=== PATIENT | female | born 1955 | race Caucasian/White ===

== ENCOUNTER → 2018-01-30 11:24 | Outpatient (CLI) | payer OTHER, SELFPAY ==
--- NOTE | 2018-01-30 | DI.MG.S_ITS ---
BILATERAL DIGITAL SCREENING MAMMOGRAM 3D/2D WITH CAD: 01/30/2018 CLINICAL: Routine screening. Comparison is made to exams dated: 11/28/2016 mammogram, 09/10/2015 mammogram, and 08/12/2014 mammogram - [facility]. There are scattered fibroglandular elements in both breasts. Current study was also evaluated with a Computer Aided Detection (CAD) system. No significant masses, calcifications, or other findings are seen in either breast. There has been no significant interval change. IMPRESSION: NEGATIVE There is no mammographic evidence of malignancy. A 1 year screening mammogram is recommended. This exam was interpreted at Station ID: [id number]. NOTE: For mammograms, a report in lay terms will be sent to the patient. Approximately 15% of breast malignancies will not be visualized mammographically. In the management of a palpable breast mass, a negative mammogram must not discourage biopsy of a clinically suspicious lesion. Electronically Signed By: Paras jacobs/marito:01/30/2018 16:04:20 letter sent: Normal Exam ACR BI-RADS Category 1: Negative 3341F
== END ==
PROVIDERS: PCP Physician Assistant; Visit Provider Physician Assistant
DX: Z12.31 Encounter for screening mammogram for malignant neoplasm of breast (principal)
CPT/HCPCS: 77063; 77067

== ENCOUNTER → 2018-06-27 14:45 | Outpatient (CLI) | payer OTHER, SELFPAY ==
[2018-06-27 15:50] LABS: Add Manual Diff / Slide Review NO; Basophils Percent Auto 0.7 % (0-2); Eosinophils Percent Auto 1.7 % (2-4); Hemoglobin 14.6 g/dL (12.0-16.0); Lymphocytes Percent Auto 28.4 % (25-40); Mean Corpuscular HGB Conc 33.9 % (30-36); Mean Corpuscular Hemoglobin 33.8 PG (26-34); Mean Corpuscular Volume 99.7 fL (80-100); Monocytes Percent Auto 6.3 % (3-14); Neutrophils Absolute Auto 3600 /uL (3000-5900); Neutrophils Percent Auto 62.9 % (50-75); Platelet Count 217 X10^3/uL (150-400); Red Blood Cell Count 4.31 X10^6/uL (4.0-5.2); Red Cell Distribution Width 14.2 % (11.6-14.8); White Blood Cell Count 5.8 X10^3/uL (4.5-11.0)
[2018-06-27 16:07] LABS: HEMOLYSIS < 15 (0-50); Iron 194 ug/dL (37-170)
[2018-06-27 16:17] LABS: Percent Iron Saturation 80 % (15-50); Total Iron Binding Capacity 241 ug/dL (265-497); Transferrin 223 mg/dL (206-381)
[2018-06-27 16:43] LABS: Ferritin 56.5 ng/mL (11.1-264)
== END ==
PROVIDERS: PCP Physician Assistant; Visit Provider Physician Assistant
DX: D50.9 Iron deficiency anemia, unspecified (principal); Z13.0 Encounter for screening for diseases of the blood and blood-forming organs and certain disorders involving the immune mechanism; R68.89 Other general symptoms and signs
CPT/HCPCS: 36415; 82728; 83540; 83550; 85025

== ENCOUNTER → 2018-06-28 12:46 | Outpatient (CLI) | payer OTHER, SELFPAY ==
[2018-06-28 13:31] LABS: 585 Gram Check PASS; Presystolic 123; Pulse 68; Zero Check Sebra Scale PASS
[2018-06-28 13:32] LABS: Dizziness NO; Postdiastolic BP 82; Postsystolic BP 111; Prediastolic 82; Site of phlebotomy L AC; Swelling NO; Temperature 97.4
[2018-06-28 13:38] LABS: Therapeutic Phleb Comment COMPLETE
== END ==
PROVIDERS: PCP Physician Assistant; Visit Provider Physician Assistant
DX: E83.110 Hereditary hemochromatosis (principal)
CPT/HCPCS: 99195

== ENCOUNTER 2018-07-20 18:51 | Emergency (ER) | payer MEDICARE, SELFPAY ==
[2018-07-20 19:01] VITALS: BP 138/82; PULSE 74; RESP 15; TEMP 36.8; O2SAT 100
--- NOTE | 2018-07-20 19:14 | ED_ITS ---
HPI - Extremity Injury (Lower) General Chief Complaint: Extremity Injury, Lower Stated Complaint: A BIG SPLINTER ON RIGHT FOOT Time Seen by Provider: 07/20/18 19:05 Source: patient Mode of arrival: ambulatory Limitations: no limitations History of Present Illness HPI Narrative: this is a 62-year-old female who comes in with a splinter in her foot. Patient states she was walking in cleaning her home there is an area where her old rajinder and new rajinder is connected. The area is ragged and she was in socks and got a piece of wood in her foot. Patient was able to break a piece off but there is still a portion it feels like it is underneath the skin. Patient states painful to walk on. This happened just prior to arrival. She denies any other symptoms or injuries. Patient states that her tetanus is up-to-date, she denies any medical problems. Related Data Previous Rx's Medication Instructions Recorded doxycycline hyclate 100 mg PO BID #14 cap 07/20/18 Allergies Allergy/AdvReac Type Severity Reaction Status Date / Time No Known Drug Allergies Allergy Verified 07/20/18 19:01 Review of Systems Review of Systems All systems reviewed & are unremarkable except as noted in HPI and below Musculoskeletal Reports other (foot pain, sliver in foot) Integumentary/Breasts Reports wounds Exam Narrative Exam Narrative: GENERAL: Alert and oriented x three, Well-nourished, well- appearing female in mild distress. HEENT: Head normocephalic, atraumatic, face symmetric, moist mucous membranes NECK: Supple, full range of motion EXTREMITIES: Normal range of motion, no clubbing or edema. Neurovascularly intact. There is a puncture wound on the right foot and I am able to palpate foreign body that measures about 1/2 cm in length running from it. It feels to be just underneath the skin a little bit of subcutaneous tissue. Patient has mild tenderness. There is no erythema, there is no drainage. There is no active bleeding. Patient has 2+ dorsalis pedis on the right foot. She has normal sensation throughout, cap refills less than 2 sec. NEUROLOGICAL: Cranial nerves II through XII grossly intact. Moving all extremities SKIN: Warm, dry, no petechiae, no rashes, see above. Initial Vital Signs Initial Vital Signs: Vital Signs Temperature 98.3 F 07/20/18 19:01 Pulse Rate 74 07/20/18 19:01 Respiratory Rate 15 07/20/18 19:01 Blood Pressure 138/82 07/20/18 19:01 Pulse Oximetry 100 07/20/18 19:01 Procedures Foreign Body OTHER Time Out Performed: yes Site: right and foot Description of foreign body: other (large splinter/wood ) Sedation/Analgesia: none and other ( Area was prepped with chlorahexadine .3 cc of lidocaine was injected into the site along the splinter. No blood was aspirated prior to injection. ) Technique: manual removal (small 0.5cm incision made at end proximal, splinter grasped with forceps and pressure applied from other end with thumb, able to remove intact. ), removal with forceps and incision made to facilitate removal Confirmed by:: direct visualization and palpation Complications: bleeding (very minimal) Neurovascular: normal distal pulse, normal capillary fill, distal light touch sensation intact and distal motor function normal Course Orders Ordered: Discontinued Medications Doxycycline Hyclate (Vibramycin) 100 mg PO NOW ONE Stop: 07/20/18 20:08 Last Admin: 07/20/18 20:12 Dose: 100 mg Lidocaine/Prilocaine (Lidocaine-Prilocaine Cream) 5 gm TOP NOW ONE Stop: 07/20/18 19:13 Last Admin: 07/20/18 19:16 Dose: 5 gm Vital Signs - 8 hr 07/20/18 19:01 07/20/18 20:13 Temperature 98.3 F Pulse Rate 74 69 Respiratory Rate 15 16 Blood Pressure 138/82 Blood Pressure [Left Arm] 133/78 Pulse Oximetry 100 100 MDM - Extremity Injury (Lower) MDM Narrative Medical decision making narrative: Able to remove Splinter in what appears to be its entirety. it did appear little bit ragged so we did discuss there may be some very small pieces still located within the soft tissue of her foot but would be very small, unable to palpate any further peices. Started on doxycycline. Patient has left over norco from prior surgery for breakthrough pain and plan for tylenol/motrin, wound care directions . Discharge Plan Departure Patient Disposition: Home Clinical Impression: Puncture wound of foot, Splinter of right foot Discharge Date/Time: 07/20/18 20:39 Interventions: ED Discharge Assessment Last Done: 07/20/18 20:38 Instructions: DI for Splinter Removal Activity Restrictions/Additional Instructions: Wound Care: Keep wound(s) clean and dry, air dry throughout the day. Wash twice daily with soap and water only. Do not use over the counter products (alcohol or peroxide)on the wounds unless instructed by a physician, you may use triple antibiotic ointment twice daily. If wound condition worsens (increased/expanding redness, developing fluid blisters, or worsening pain), either contact your doctor for an urgent re- assessment , or return to the Emergency Department. Return to the Emergency Department for any new or worsening symptoms. Return if fever greater than 100.4 Fahrenheit, increased swelling, increasing pain or worsening symptoms such as increased discharge or spreading redness. Use warm compresses 3 times daily for 20 minutes to the affected area. If there is packing in place do not pull it out, if it falls out do not try to replace it. Prescriptions: New doxycycline hyclate 100 mg capsule 100 mg PO BID Qty: 14 RF: 0
[2018-07-20] MEDS: LIDOCAINE/PRILOCAINE 5 GM TOP (19:16)
[2018-07-20] MEDS: DOXYCYCLINE HYCLATE 100 MG TABLET PO (20:12)
[2018-07-20 20:13] VITALS: BP 133/78; PULSE 69; RESP 16; O2SAT 100
== END 2018-07-20 20:39 | disposition home or self-care (01) ==
PROVIDERS: Emergency Provider Emergency Medicine; PCP Physician Assistant
DX: S90.851A Superficial foreign body, right foot, initial encounter (principal); W45.8XXA Other foreign body or object entering through skin, initial encounter
CPT/HCPCS: 10120; 99283

== ENCOUNTER → 2018-10-28 13:28 | Outpatient (CLI) | payer MEDICARE, SELFPAY ==
[2018-10-28 13:51] LABS: Add Manual Diff / Slide Review NO; Basophils Absolute Auto 0 /uL (0-100); Basophils Percent Auto 0.3 % (0-2); Eosinophils Absolute Auto 100 /uL (0-450); Hematocrit 40.7 % (36-46); Hemoglobin 14.1 g/dL (12.0-16.0); Lymphocytes Absolute Auto 1600 /uL (1100-4500); Lymphocytes Percent Auto 31.3 % (25-40); Mean Corpuscular HGB Conc 34.6 % (30-36); Mean Corpuscular Hemoglobin 33.6 PG (26-34); Mean Corpuscular Volume 97.1 fL (80-100); Monocytes Absolute Auto 400 /uL (0-900); Monocytes Percent Auto 7.7 % (3-14); Neutrophils Absolute Auto 3100 /uL (1500-7000); Neutrophils Percent Auto 58.7 % (50-75); Platelet Count 207 X10^3/uL (150-400); Red Blood Cell Count 4.19 X10^6/uL (4.0-5.2); Red Cell Distribution Width 13.7 % (11.6-14.8); White Blood Cell Count 5.2 X10^3/uL (4.5-11.0)
[2018-10-28 14:47] LABS: HEMOLYSIS < 15 (0-50); Iron 227 ug/dL (37-170)
[2018-10-28 14:58] LABS: Percent Iron Saturation 90 % (15-50); Total Iron Binding Capacity 251 ug/dL (265-497); Transferrin 203 mg/dL (206-381)
[2018-10-28 15:24] LABS: Ferritin 46.9 ng/mL (11.1-264)
== END ==
PROVIDERS: Family Provider Internal Medicine; PCP Physician Assistant; Visit Provider Physician Assistant
DX: M25.561 Pain in right knee (principal); R68.89 Other general symptoms and signs; Z13.0 Encounter for screening for diseases of the blood and blood-forming organs and certain disorders involving the immune mechanism
CPT/HCPCS: 36415; 82728; 83540; 83550; 85025

== ENCOUNTER → 2018-10-29 09:54 | Outpatient (CLI) | payer MEDICARE, SELFPAY ==
[2018-10-29 11:53] LABS: 585 Gram Check PASS; Amount Collected in g 585 GRAM; Dizziness NO; Postdiastolic BP 79; Postsystolic BP 123; Prediastolic 78; Presystolic 127; Pulse 80; Site of phlebotomy RIGHT AC; Swelling NO; Therapeutic Phleb Comment NO COMMENT; Zero Check Sebra Scale PASS
== END ==
PROVIDERS: PCP Physician Assistant; Visit Provider Physician Assistant
DX: E83.119 Hemochromatosis, unspecified (principal)
CPT/HCPCS: 99195

== ENCOUNTER → 2018-11-04 07:41 | Outpatient (CLI) | payer MEDICARE, SELFPAY ==
--- NOTE | 2018-11-04 | DI.MRI.S_ITS ---
PROCEDURE: MR KNEE RT WITHOUT AND WITH CON INDICATIONS: RIGHT KNEE PAIN TECHNIQUE: Noncontrast sagittal PD fast spin echo and T2 fast spin echo with fat saturation, sagittal 3-D FLASH with fat saturation; coronal T1 spin echo and PD fast spin echo with fat saturation, and axial PD fast spin echo with fat saturation through the knee before and after IV infusion of gadolinium contrast. COMPARISON: None. FINDINGS: Image quality: Excellent. Menisci: There is suggestion of subtle oblique tear involving posterior horn of medial meniscus extending to inferior articulating surface. No evidence of focal lateral meniscal tear. The meniscal root ligaments appear intact. Cruciate ligaments: Fluid signal within proximal anterior cruciate ligament near its femoral insertion is seen suggestive of sprain/intrasubstance partial-thickness tear involving the proximal ACL. No full-thickness ACL rupture. PCL is intact. Medial structures: The medial collateral ligament appears intact. The posterior oblique ligament, semimembranosus tendon insertions, oblique popliteal ligament, and meniscocapsular junction appear intact. Visualized portions of the pes anserinus tendons appear normal. No abnormal bursal fluid. Lateral structures: The lateral collateral ligament, long and short heads of the biceps femoris tendon appear intact. The popliteus tendon appears normal; the popliteofibular ligament appears intact. The posterosuperior and anteroinferior popliteomeniscal fascicles appear intact. The arcuate and fabellofibular ligaments appear intact, on either side of the lateral inferior geniculate artery. Iliotibial band appears normal. Anterior structures: The quadriceps and patellar tendons appear intact. Patellar alignment is normal. No femoral trochlear dysplasia or ventral trochlear prominence. No edema in the infrapatellar fat pad. Bones and cartilage: No bone marrow contusions or fractures. There is [id number]-op-[id number] tricompartmental osteoarthritis more prominent in the medial femorotibial compartment. Low-grade chondromalacia in all 3 compartments of right knee is seen. Tiny No area of abnormal intraosseous contrast enhancement is seen. Joint space: There is a small amount of joint fluid. No gross loose body. Lobulated popliteal cyst is noted and measures 1.5 x 3.9 x 5.5 cm in size. Normal appearing synovial plicae are incidentally noted. No area of abnormal soft tissue enhancement. IMPRESSION: 1. Mild to moderate tricompartmental osteoarthritis more prominent in medial femoral tibial compartment. Small joint effusion. Popliteal cyst as above. 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 2. Suggestion of subtle oblique tear involving posterior horn of medial meniscus extending to inferior articulating surface. No focal lateral meniscal tear. 3. Suggestion of sprain/low-grade intrasubstance partial-thickness tear involving anterior cruciate ligament near its insertion. No full-thickness ACL rupture. PCL is intact. 4. No area of abnormal contrast enhancement. Dictated by: Caleb Wilson M.D. on 11/04/2018 at 9:51 Approved by: Caleb Wilson M.D. on 11/04/2018 at 9:59
== END ==
PROVIDERS: PCP Internal Medicine; Visit Provider Internal Medicine
DX: M25.561 Pain in right knee (principal); M17.11 Unilateral primary osteoarthritis, right knee; M25.461 Effusion, right knee; M71.21 Synovial cyst of popliteal space [Baker], right knee; M22.41 Chondromalacia patellae, right knee
CPT/HCPCS: 73721

== ENCOUNTER → 2018-12-26 14:57 | Outpatient (CLI) | payer MEDICARE, SELFPAY ==
[2018-12-26 15:35] LABS: Add Manual Diff / Slide Review NO; Basophils Absolute Auto 0 /uL (0-100); Basophils Percent Auto 0.9 % (0-2); Eosinophils Absolute Auto 100 /uL (0-450); Eosinophils Percent Auto 1.8 % (2-4); Hematocrit 41.1 % (36-46); Hemoglobin 14.1 g/dL (12.0-16.0); Lymphocytes Absolute Auto 1200 /uL (1100-4500); Lymphocytes Percent Auto 25.3 % (25-40); Mean Corpuscular HGB Conc 34.4 % (30-36); Mean Corpuscular Volume 98.8 fL (80-100); Monocytes Absolute Auto 400 /uL (0-900); Monocytes Percent Auto 8.3 % (3-14); Neutrophils Absolute Auto 3100 /uL (1500-7000); Neutrophils Percent Auto 63.7 % (50-75); Platelet Count 240 X10^3/uL (150-400); Red Blood Cell Count 4.16 X10^6/uL (4.0-5.2); Red Cell Distribution Width 13.2 % (11.6-14.8); White Blood Cell Count 4.9 X10^3/uL (4.5-11.0)
[2018-12-26 16:39] LABS: HEMOLYSIS < 15 (0-50); Iron 172 ug/dL (37-170)
[2018-12-26 16:52] LABS: Percent Iron Saturation 64 % (15-50); Total Iron Binding Capacity 270 ug/dL (265-497); Transferrin 223 mg/dL (206-381)
== END ==
PROVIDERS: PCP Internal Medicine; Visit Provider Physician Assistant
DX: E83.119 Hemochromatosis, unspecified (principal)
CPT/HCPCS: 36415; 82728; 83540; 83550; 85025

== ENCOUNTER → 2019-03-27 16:24 | Outpatient (ROUT) | payer MEDICARE, SELFPAY | PROVIDERS: PCP Internal Medicine; Visit Provider Nurse Practitioner Family | DX: J02.9 Acute pharyngitis, unspecified (principal) | CPT/HCPCS: 87070 ==

== ENCOUNTER → 2019-06-12 14:48 | Outpatient (CLI) | payer MEDICARE, SELFPAY ==
[2019-06-12 16:24] LABS: Add Manual Diff / Slide Review NO; Basophils Absolute Auto 0 /uL (0-100); Basophils Percent Auto 0.6 % (0-2); Eosinophils Absolute Auto 100 /uL (0-450); Eosinophils Percent Auto 2.1 % (2-4); Hematocrit 41.2 % (36-46); Hemoglobin 14.2 g/dL (12.0-16.0); Lymphocytes Absolute Auto 1700 /uL (1100-4500); Lymphocytes Percent Auto 35.4 % (25-40); Mean Corpuscular HGB Conc 34.4 % (30-36); Mean Corpuscular Hemoglobin 33.3 PG (26-34); Mean Corpuscular Volume 96.6 fL (80-100); Monocytes Absolute Auto 400 /uL (0-900); Neutrophils Absolute Auto 2500 /uL (1500-7000); Neutrophils Percent Auto 53.9 % (50-75); Platelet Count 202 X10^3/uL (150-400); Red Blood Cell Count 4.27 X10^6/uL (4.0-5.2); Red Cell Distribution Width 13.7 % (11.6-14.8); White Blood Cell Count 4.7 X10^3/uL (4.5-11.0)
[2019-06-12 16:45] LABS: HEMOLYSIS < 15 (0-50); Iron 167 ug/dL (37-170)
[2019-06-12 16:57] LABS: Percent Iron Saturation 63 % (15-50); Total Iron Binding Capacity 264 ug/dL (265-497); Transferrin 225 mg/dL (206-381)
[2019-06-12 17:13] LABS: Ferritin 32.4 ng/mL (11.1-264)
== END ==
PROVIDERS: Family Provider Internal Medicine; PCP Internal Medicine; Visit Provider Physician Assistant
DX: E83.110 Hereditary hemochromatosis (principal)
CPT/HCPCS: 36415; 82728; 83540; 83550; 85025

== ENCOUNTER → 2020-04-04 09:03 | Outpatient (CLI) | payer MEDICARE, SELFPAY ==
[2020-04-05 20:33] LABS: COVID19 Sendout Not Detected (Not Detect)
== END ==
PROVIDERS: Family Provider Internal Medicine; PCP Internal Medicine; Visit Provider Nurse Practitioner
DX: Z11.59 Encounter for screening for other viral diseases (principal)
CPT/HCPCS: 87635

== ENCOUNTER 2020-04-07 07:55 | Day surgery (SDC) | payer MEDICARE, SELFPAY ==
[2020-04-07] VITALS (7 sets, daily range): BP systolic 99–129; BP diastolic 59–70; PULSE 55–67; RESP 12–17; TEMP 36.1–36.6; O2SAT 95–100; BMI 25.2
--- NOTE | 2020-04-07 | PATH_ITS ---
[facility] Accession Number: [id number] . 01 Material submitted: . colon - HEPATIC POLYP . 02 Diagnosis: Hepatic Polyp: Tubular adenoma. MRV 04/08/2020 1342 Local . 02 Electronically signed: . Bertha Pavon MD, Pathologist NPI- [id number] . 01 Gross description: . HEPATIC POLYP: Received in formalin is 1 fragment(s) of ghosh, soft tissue measuring 0.4 x 0.4 x 0.2 cm submitted entirely in 1 cassette(s) /ALEXANDRA 04/08/2020 0147 Local . 02 Pathologist provided ICD-10: K63.5 . 02 CPT . 076891 Performed at: 01 [facility] [address] [facility], [place], [place] [id number] MD Pramod Judd MD Phone: [phone] Performed at: 02 [facility] [address] [place], [place] [id number] MD Lauren Martínez MD Phone: [phone]
--- NOTE | 2020-04-07 09:25 | PM.HP.1 ---
History of Present Illness History of Present Illness Date Patient Seen: 04/07/20 Time Patient Seen: 09:26 Chief complaint: COLONOSCOPY Narrative: Rectal bleeding Patient History Medical History (Updated 09/26/19 @ 11:04 by Henrietta Agosto PA-C) Allergic rhinitis (Acute) Cellulitis of nose, external (Acute) Family & Social History Social History: household members friend(s) Tobacco & Substance use: Smoking Status Never smoker alcohol intake never Substance Use Type does not use Meds Home Medications and Allergies Home Medications Medication Instructions Recorded Confirmed Type citalopram 10 mg PO DAILY 04/07/20 04/07/20 History fluticasone furoate 1 spray INTRANASAL DAILY 04/07/20 04/07/20 History Allergies Allergy/AdvReac Type Severity Reaction Status Date / Time No Known Drug Allergies Allergy Verified 04/04/20 09:15 Exam Vital Signs (past 8 hours): - 04/07/20 08:17 Temperature 97.4 F L Pulse Rate 67 Respiratory Rate 16 Blood Pressure 129/70 Pulse Oximetry 98 Oxygen Delivery Method Room Air Narrative Exam Narrative: Oropharynx free of lesions Chest clear to auscultation percussion Cardiac exam reveals no S3 or murmur Assessment & Plan Assessment & Plan narrative: History of rectal bleeding 3 months ago and with last colonoscopy 10 years ago need for follow-up colonoscopy. Risks, benefits, alternatives have been explained.
[2020-04-07] MEDS: MIDAZOLAM 5 MG/5 ML VIAL IV ×6 (09:26→09:38)
[2020-04-07] MEDS: fentaNYL 250 MCG/5 ML INJ IV (09:26)
--- NOTE | 2020-04-07 09:26 | PM.OP.ENDO ---
Operative Date/Time/Diagnoses Date of procedure: 04/07/20 Time of procedure: 09:27 Pre-op diagnosis: See indication and findings Procedure & Clinicians Study performed: Colonoscopy Same procedure as scheduled: Yes Indications: Rectal bleed and screening Surgeon: Kuldip Narvaez Procedure Notes Procedure in detail: After informed consent was obtained the patient was placed in left lateral decubitus position. The video colonoscope was introduced the rectum slowly advanced to cecum. On slow withdrawal mucosa was carefully examined. Preparation was good. The scope was removed. The patient tolerated procedure well. Blood loss none Complications none Sedation Total sedation time 19 minutes Fentanyl 100 micro g Versed 6 mg IV titration Findings 1. 4 mm polyp hepatic flexure Jumbo biopsy removed completely 2. Moderate to severe sigmoid diverticulosis multiple small diverticula 3. Faint melanosis coli in the sigmoid 4. Mild internal hemorrhoids. 5. Otherwise negative colonoscopy to cecum Will follow up on her pathology results but will not need follow-up colonoscopy before 7 to 10 years.
== END 2020-04-07 10:39 | disposition home or self-care (01) ==
PROVIDERS: Family Provider Internal Medicine; PCP Internal Medicine; Referring Provider Internal Medicine; Visit Provider Internal Medicine Gastroenterology
PROC: 0DJD8ZZ Inspection of Lower Intestinal Tract, Via Natural or Artificial Opening Endoscopic (ICD-10-PCS; CPT 45378; principal; 2020-04-07 09:00)
DX: K57.30 Diverticulosis of large intestine without perforation or abscess without bleeding (principal); K64.9 Unspecified hemorrhoids; K63.89 Other specified diseases of intestine; D12.3 Benign neoplasm of transverse colon
CPT/HCPCS: 45380; J2250; J3010

== ENCOUNTER → 2020-04-27 09:26 | Outpatient (CLI) | payer MEDICARE, SELFPAY ==
--- NOTE | 2020-04-27 09:27 | DI.MG.S_ITS ---
BILATERAL DIGITAL SCREENING MAMMOGRAM 3D/2D WITH CAD: 04/27/2020 CLINICAL: Routine screening. Comparison is made to exams dated: 01/30/2018 mammogram, 11/28/2016 mammogram - [facility], 11/10/2011 mammogram [facility], 08/12/2014 mammogram, and 09/10/2015 mammogram [facility]. There are scattered fibroglandular elements in both breasts. Current study was also evaluated with a Computer Aided Detection (CAD) system. No significant masses, calcifications, or other findings are seen in either breast. There has been no significant interval change. IMPRESSION: NEGATIVE There is no mammographic evidence of malignancy. A 1 year screening mammogram is recommended. This exam was interpreted at Station ID: [id number]. NOTE: For mammograms, a report in lay terms will be sent to the patient. Approximately 15% of breast malignancies will not be visualized mammographically. In the management of a palpable breast mass, a negative mammogram must not discourage biopsy of a clinically suspicious lesion. Electronically Signed By: Elroy logan/marito:04/27/2020 10:21:29 letter sent: Normal Exam ACR BI-RADS Category 1: Negative 3341F
== END ==
PROVIDERS: Family Provider Internal Medicine; PCP Nurse Practitioner; Referring Provider Nurse Practitioner; Visit Provider Nurse Practitioner
DX: Z12.31 Encounter for screening mammogram for malignant neoplasm of breast (principal)
CPT/HCPCS: 77063; 77067

== ENCOUNTER → 2020-05-20 13:00 | Outpatient (CLI) | payer MEDICARE, SELFPAY ==
[2020-05-20 14:02] LABS: Add Manual Diff / Slide Review NO; Basophils Absolute Auto 0 /uL (0-100); Basophils Percent Auto 0.9 % (0-2); Eosinophils Absolute Auto 100 /uL (0-450); Eosinophils Percent Auto 1.9 % (2-4); Hematocrit 39.9 % (36-46); Hemoglobin 13.7 g/dL (12.0-16.0); Lymphocytes Absolute Auto 1300 /uL (1100-4500); Lymphocytes Percent Auto 36.8 % (25-40); Mean Corpuscular HGB Conc 34.3 % (30-36); Mean Corpuscular Hemoglobin 33.4 PG (26-34); Mean Corpuscular Volume 97.3 fL (80-100); Monocytes Absolute Auto 200 /uL (0-900); Monocytes Percent Auto 6.7 % (3-14); Neutrophils Absolute Auto 2000 /uL (1500-7000); Neutrophils Percent Auto 53.7 % (50-75); Platelet Count 193 X10^3/uL (150-400); Red Cell Distribution Width 13.5 % (11.6-14.8); White Blood Cell Count 3.7 X10^3/uL (4.5-11.0)
[2020-05-20 14:28] LABS: HEMOLYSIS < 15 (0-50); Iron 241 ug/dL (37-170)
[2020-05-20 14:38] LABS: Percent Iron Saturation 95 % (15-50); Total Iron Binding Capacity 254 ug/dL (265-497); Transferrin 205 mg/dL (206-381)
[2020-05-20 14:45] LABS: Free T4, Direct Thyroxine 0.91 ng/dL (0.78-2.19)
[2020-05-20 14:58] LABS: Thyroid Stimulating Hormone 0.563 uIU/mL (0.47-4.68)
[2020-05-20 15:52] LABS: Alanine Aminotransferase 16 IU/L (<35); Albumin Globulin Ratio 1.4 (1.0-2.8); Alkaline Phosphatase 59 U/L (38-126); Aspartate Aminotransferase 27 IU/L (14-36); BUN Creatinine Ratio 28.3 (6-22); Bilirubin Total 0.8 mg/dL (0.2-1.3); Blood Urea Nitrogen 17 mg/dL (7-17); Calcium 9.1 mg/dL (8.4-10.2); Carbon Dioxide 28 mmol/L (22-32); Chloride 102 mmol/L (98-107); Cholesterol 220 mg/dL (140-199); Estimated Glomerular Filt Rate > 60.0 mL/min (>60); Globulin 2.8 g/dL (1.7-4.1); Glucose 81 mg/dL (80-110); HDL Cholesterol 82 mg/dL (40-60); HEMOLYSIS < 15 (0-50); LDL Cholesterol Calculated 123 mg/dL (<100); Potassium 4.5 mmol/L (3.4-5.1); Sodium 138 mmol/L (137-145); Total Protein 6.8 g/dL (6.3-8.2); Triglycerides 74 mg/dL (35-150)
[2020-05-20 16:27] LABS: Ferritin 68 ng/mL (11-264)
== END ==
PROVIDERS: Family Provider Internal Medicine; PCP Nurse Practitioner; Referring Provider Nurse Practitioner; Visit Provider Nurse Practitioner
DX: E83.119 Hemochromatosis, unspecified (principal); L65.9 Nonscarring hair loss, unspecified; Z13.6 Encounter for screening for cardiovascular disorders; Z79.899 Other long term (current) drug therapy
CPT/HCPCS: 36415; 80053; 80061; 82728; 83540; 83550; 84439; 84443; 85025

== ENCOUNTER → 2020-06-18 09:47 | Outpatient (CLI) | payer MEDICARE, SELFPAY | PROVIDERS: Family Provider Internal Medicine; PCP Nurse Practitioner; Referring Provider Nurse Practitioner; Visit Provider Nurse Practitioner | DX: M85.832 Other specified disorders of bone density and structure, left forearm (principal); Z78.0 Asymptomatic menopausal state; Z82.62 Family history of osteoporosis | CPT/HCPCS: 77080 ==

== ENCOUNTER → 2020-10-20 11:20 | Outpatient (CLI) | payer MEDICARE, SELFPAY | PROVIDERS: Family Provider Internal Medicine; PCP Nurse Practitioner; Referring Provider Nurse Practitioner; Visit Provider Nurse Practitioner | DX: J34.89 Other specified disorders of nose and nasal sinuses (principal) | CPT/HCPCS: 87070; 87205 ==

== ENCOUNTER → 2022-02-15 10:37 | Outpatient (CLI) | payer MEDICARE, SELFPAY ==
--- NOTE | 2022-02-15 | DI.MG.S_ITS ---
BILATERAL DIGITAL SCREENING MAMMOGRAM 3D/2D WITH CAD: 02/15/2022 CLINICAL: Routine screening. Comparison is made to exams dated: 04/27/2020 mammogram, 01/30/2018 mammogram, and 11/28/2016 mammogram - [facility]. There are scattered fibroglandular elements in both breasts. Current study was also evaluated with a Computer Aided Detection (CAD) system. No significant masses, calcifications, or other findings are seen in either breast. There has been no significant interval change. IMPRESSION: NEGATIVE There is no mammographic evidence of malignancy. A 1 year screening mammogram is recommended. This exam was interpreted at Station ID: [id number]. NOTE: For mammograms, a report in lay terms will be sent to the patient. Approximately 15% of breast malignancies will not be visualized mammographically. In the management of a palpable breast mass, a negative mammogram must not discourage biopsy of a clinically suspicious lesion. Electronically Signed By: Mikey Gutierrez M.D., jr/marito:02/15/2022 11:38:20 letter sent: Normal Exam ACR BI-RADS Category 1: Negative 3341F
== END ==
PROVIDERS: Family Provider Internal Medicine; PCP Nurse Practitioner; Referring Provider Nurse Practitioner; Visit Provider Nurse Practitioner
DX: Z12.31 Encounter for screening mammogram for malignant neoplasm of breast (principal)
CPT/HCPCS: 77063; 77067

== ENCOUNTER → 2022-05-15 10:38 | Outpatient (CLI) | payer MEDICARE, SELFPAY ==
[2022-05-15 14:33] LABS: Alanine Aminotransferase 15 IU/L (<35); Albumin 4.1 g/dL (3.5-5.0); Albumin Globulin Ratio 1.6 (1.0-2.8); Alkaline Phosphatase 57 U/L (38-126); Aspartate Aminotransferase 27 IU/L (14-36); BUN Creatinine Ratio 21.2 (6-22); Bilirubin Total 0.7 mg/dL (0.2-1.3); Blood Urea Nitrogen 14 mg/dL (7-17); Calcium 8.9 mg/dL (8.4-10.2); Carbon Dioxide 29 mmol/L (22-32); Chloride 103 mmol/L (98-107); Cholesterol 207 mg/dL (140-199); Estimated Glomerular Filt Rate > 60 mL/min (>60); Globulin 2.6 g/dL (1.7-4.1); Glucose 76 mg/dL (80-110); HDL Cholesterol 79 mg/dL (40-60); HEMOLYSIS < 15 (0-50); LDL Cholesterol Calculated 115 mg/dL (<100); Potassium 4.5 mmol/L (3.4-5.1); Sodium 141 mmol/L (137-145); Total Protein 6.7 g/dL (6.3-8.2); Triglycerides 63 mg/dL (35-150)
[2022-05-15 14:51] LABS: Free T3, Triiodothyronine Free 3.41 pg/mL (2.77-5.27); Free T4, Direct Thyroxine 0.95 ng/dL (0.78-2.19)
== END ==
PROVIDERS: Family Provider Internal Medicine; PCP Nurse Practitioner; Referring Provider Nurse Practitioner; Visit Provider Nurse Practitioner
DX: E78.5 Hyperlipidemia, unspecified (principal); F32.A Depression, unspecified
CPT/HCPCS: 36415; 80053; 80061; 84439; 84443; 84481

== ENCOUNTER → 2022-07-17 17:13 | Outpatient (CLI) | payer MEDICARE, SELFPAY ==
[2022-07-17 17:41] LABS: Add Manual Diff / Slide Review NO; Basophils Absolute Auto 0 /uL (0-100); Basophils Percent Auto 0.6 % (0-2); Eosinophils Absolute Auto 100 /uL (0-450); Eosinophils Percent Auto 1.7 % (2-4); Hematocrit 40.4 % (36-46); Hemoglobin 14.1 g/dL (12.0-16.0); Lymphocytes Absolute Auto 1700 /uL (1100-4500); Lymphocytes Percent Auto 28.4 % (25-40); Mean Corpuscular HGB Conc 34.8 % (30-36); Mean Corpuscular Hemoglobin 33.7 PG (26-34); Mean Corpuscular Volume 96.9 fL (80-100); Monocytes Absolute Auto 400 /uL (0-900); Monocytes Percent Auto 6.1 % (3-14); Neutrophils Absolute Auto 3800 /uL (1500-7000); Neutrophils Percent Auto 63.2 % (50-75); Platelet Count 199 X10^3/uL (150-400); Red Blood Cell Count 4.17 X10^6/uL (4.0-5.2); Red Cell Distribution Width 13.7 % (11.6-14.8)
[2022-07-17 18:00] LABS: HEMOLYSIS < 15 (0-50); Iron 193 ug/dL (37-170)
[2022-07-17 18:11] LABS: Total Iron Binding Capacity 240 ug/dL (265-497); Transferrin 216 mg/dL (206-381)
[2022-07-17 18:12] LABS: Percent Iron Saturation 80 % (15-50)
[2022-07-17 18:24] LABS: Ferritin 67 ng/mL (11-264)
[2022-07-17 18:54] LABS: Hep C Virus Ab w/Reflex Quant NEGATIVE s/c (NEGATIVE)
== END ==
PROVIDERS: Family Provider Internal Medicine; PCP Nurse Practitioner; Referring Provider Nurse Practitioner; Visit Provider Nurse Practitioner
DX: E83.119 Hemochromatosis, unspecified (principal); Z11.59 Encounter for screening for other viral diseases
CPT/HCPCS: 36415; 82728; 83540; 83550; 85025; 86803

== ENCOUNTER → 2022-07-25 09:42 | Outpatient (CLI) | payer MEDICARE, SELFPAY ==
[2022-07-25 10:29] LABS: 585 Gram Check PASS; Prediastolic 74; Presystolic 128; Pulse 66; Site of phlebotomy RAC; Temperature 97.3; Zero Check Sebra Scale PASS
[2022-07-25 10:30] LABS: Dizziness NO; Postdiastolic BP 83; Postsystolic BP 120; Swelling NO; Therapeutic Phleb Comment NO COMMENT
== END ==
PROVIDERS: Family Provider Internal Medicine; PCP Nurse Practitioner; Referring Provider Nurse Practitioner; Visit Provider Nurse Practitioner
DX: E83.119 Hemochromatosis, unspecified (principal)
CPT/HCPCS: 99195

== ENCOUNTER → 2022-09-22 09:38 | Outpatient (CLI) | payer MEDICARE, SELFPAY ==
[2022-09-25 16:18] LABS: Fecal Immunochemical Test Negative (Negative)
== END ==
PROVIDERS: Family Provider Internal Medicine; PCP Nurse Practitioner; Referring Provider Nurse Practitioner; Visit Provider Nurse Practitioner
DX: Z12.11 Encounter for screening for malignant neoplasm of colon (principal)
CPT/HCPCS: 82274

== ENCOUNTER → 2023-02-03 07:31 | Outpatient (CLI) | payer MEDICARE, SELFPAY ==
[2023-02-03 10:47] LABS: Influenza A - CEPHEID Flu A NEGATIVE (NEGATIVE); Influenza B - CEPHEID Flu B NEGATIVE (NEGATIVE); Respiratory Syncytial Virus Negative (Negative)
[2023-02-03 11:37] LABS: COVID-19 CEPHEID 4-PLEX PCR POSITIVE (Negative)
== END ==
PROVIDERS: Family Provider Internal Medicine; PCP Nurse Practitioner; Visit Provider Physician Assistant
DX: R09.81 Nasal congestion (principal); R50.9 Fever, unspecified
CPT/HCPCS: 0241U

== ENCOUNTER → 2023-08-17 07:26 | Outpatient (CLI) | payer MEDICARE, SELFPAY ==
--- NOTE | 2023-08-17 07:42 | DI.RAD.S_ITS ---
PROCEDURE: XR CHEST 2V INDICATIONS: cough x1 week, new fever. r/o pneumonia TECHNIQUE: 2 views of the chest were acquired. COMPARISON: None. FINDINGS: Surgical changes and devices: None. Lungs and pleura: Lungs are clear. No pleural effusions or pneumothorax. Mediastinum: Mediastinal contours are normal. Heart size is normal. Bones and chest wall: No suspicious bony abnormalities. Soft tissues appear unremarkable. IMPRESSION: No acute cardiopulmonary abnormality is seen. Dictated by: George Veliz M.D. on 08/17/2023 at 8:16 Approved by: George Veliz M.D. on 08/17/2023 at 8:17
[2023-08-17 09:08] LABS: Influenza A - CEPHEID Flu A NEGATIVE (NEGATIVE); Influenza B - CEPHEID Flu B NEGATIVE (NEGATIVE); Respiratory Syncytial Virus Negative (Negative)
[2023-08-17 09:23] LABS: COVID-19 CEPHEID 4-PLEX PCR Negative (Negative)
== END ==
PROVIDERS: Family Provider Internal Medicine; PCP Nurse Practitioner; Referring Provider Physician Assistant; Visit Provider Physician Assistant
DX: R05.1 Acute cough (principal); R50.9 Fever, unspecified
CPT/HCPCS: 0241U; 71046

== ENCOUNTER → 2023-09-13 08:37 | Outpatient (CLI) | payer MEDICARE, SELFPAY ==
--- NOTE | 2023-09-13 08:40 | DI.US.S_ITS ---
LIMITED ULTRASOUND OF LEFT BREAST: 09/13/2023 CLINICAL: Focal right breast pain. Comparison is made to exams dated: 09/13/2023 ultrasound, 09/13/2023 mammogram, 02/15/2022 mammogram, 04/27/2020 mammogram, and 01/30/2018 mammogram - [facility]. Real-time ultrasound of the left breast was performed. Casey scale images of the real-time examination were reviewed. No significant abnormalities were seen sonographically in the left breast. IMPRESSION: NEGATIVE There is no sonographic evidence of malignancy. There is no abnormality seen in the left breast to correspond with the pain, however, clinical followup is recommended. Return to annual mammogram screening schedule is recommended. This exam was interpreted at Station ID: [id number]. Electronically Signed By: Jeremiah dyson/marito:09/13/2023 10:23:01 Ultrasound BI-RADS: 1 Negative
--- NOTE | 2023-09-13 08:40 | DI.MG.S_ITS ---
BILATERAL DIGITAL DIAGNOSTIC MAMMOGRAM 3D/2D: 09/13/2023 CLINICAL: Bilateral Breast pain. Comparison is made to exams dated: 02/15/2022 mammogram, 04/27/2020 mammogram, and 01/30/2018 mammogram - [facility]. There are scattered areas of fibroglandular density in both breasts (category b / 25%-50% glandular tissue). No significant masses, calcifications, or other findings are seen in either breast. IMPRESSION: INCOMPLETE: NEEDS ADDITIONAL IMAGING EVALUATION There is no abnormality seen in either breast to correspond with the pain, however, ultrasound is recommended. Based on the Tyrer Cuzick model (a risk assessment model) the patient's lifetime risk is 4.4% and her 10 year risk is 2.8%. According to the ACR, ACS, and NCCN guidelines, an annual breast MRI exam along with mammogram is recommended if the patient's lifetime risk is 20% or greater. This exam was interpreted at Station ID: [id number]. NOTE: For mammograms, a report in lay terms will be sent to the patient. Approximately 15% of breast malignancies will not be visualized mammographically. In the management of a palpable breast mass, a negative mammogram must not discourage biopsy of a clinically suspicious lesion. Electronically Signed By: Jeremiah dyson/marito:09/13/2023 09:53:02 ACR BI-RADS Category 0: Incomplete 3340F
--- NOTE | 2023-09-13 08:40 | DI.US.S_ITS ---
LIMITED ULTRASOUND OF RIGHT BREAST: 09/13/2023 CLINICAL: Focal right breast pain. Comparison is made to exams dated: 09/13/2023 mammogram, 02/15/2022 mammogram, 04/27/2020 mammogram, and 01/30/2018 mammogram - [facility]. Real-time ultrasound of the right breast was performed. Casey scale images of the real-time examination were reviewed. No significant abnormalities were seen sonographically in the right breast. IMPRESSION: NEGATIVE There is no sonographic evidence of malignancy. There is no abnormality seen in the right breast to correspond with the pain, however, clinical followup is recommended. Return to annual mammogram screening schedule is recommended. This exam was interpreted at Station ID: [id number]. Electronically Signed By: Jeremiah dyson/marito:09/13/2023 10:22:34 letter sent: Clinical Evaluation Ultrasound BI-RADS: 1 Negative
== END ==
PROVIDERS: Family Provider Internal Medicine; PCP Nurse Practitioner; Referring Provider Nurse Practitioner; Visit Provider Nurse Practitioner
DX: R92.2 Inconclusive mammogram (principal); R92.323 Mammographic fibroglandular density, bilateral breasts; N64.4 Mastodynia
CPT/HCPCS: 76642; 77066; G0279

== ENCOUNTER → 2023-10-12 10:16 | Outpatient (CLI) | payer MEDICARE, SELFPAY ==
[2023-10-12 11:38] LABS: Add Manual Diff / Slide Review NO; Basophils Absolute Auto 0 /uL (0-100); Eosinophils Absolute Auto 100 /uL (0-450); Eosinophils Percent Auto 2.5 % (2-4); Hematocrit 38.8 % (36-46); Hemoglobin 13.4 g/dL (12.0-16.0); Lymphocytes Absolute Auto 1100 /uL (1100-4500); Lymphocytes Percent Auto 30.8 % (25-40); Mean Corpuscular HGB Conc 34.4 % (30-36); Mean Corpuscular Hemoglobin 34.1 PG (26-34); Mean Corpuscular Volume 98.9 fL (80-100); Monocytes Absolute Auto 300 /uL (0-900); Monocytes Percent Auto 7.2 % (3-14); Neutrophils Absolute Auto 2100 /uL (1500-7000); Neutrophils Percent Auto 58.5 % (50-75); Platelet Count 202 X10^3/uL (150-400); Red Blood Cell Count 3.93 X10^6/uL (4.0-5.2); Red Cell Distribution Width 13.4 % (11.6-14.8); White Blood Cell Count 3.6 X10^3/uL (4.5-11.0)
[2023-10-12 11:57] LABS: Alanine Aminotransferase 14 IU/L (<35); Albumin 4.1 g/dL (3.5-5.0); Albumin Globulin Ratio 1.4 (1.0-2.8); Alkaline Phosphatase 54 U/L (38-126); Aspartate Aminotransferase 25 IU/L (14-36); BUN Creatinine Ratio 27.9 (6-22); Bilirubin Total 0.9 mg/dL (0.2-1.3); Blood Urea Nitrogen 17 mg/dL (7-17); Carbon Dioxide 28 mmol/L (22-32); Chloride 106 mmol/L (98-107); Cholesterol 228 mg/dL (140-199); Estimated Glomerular Filt Rate > 60 mL/min (>60); Glucose 84 mg/dL (80-110); HDL Cholesterol 83 mg/dL (40-60); HEMOLYSIS < 15 (0-50); LDL Cholesterol Calculated 131 mg/dL (<100); Potassium 4.2 mmol/L (3.4-5.1); Sodium 139 mmol/L (137-145); Total Protein 7.1 g/dL (6.3-8.2); Triglycerides 71 mg/dL (35-150)
[2023-10-12 12:14] LABS: Free T3, Triiodothyronine Free 3.87 pg/mL (2.77-5.27); Free T4, Direct Thyroxine 1.04 ng/dL (0.78-2.19)
[2023-10-12 12:14] LABS: Microalbumin Urine Random < 0.6 mg/dL (0-1.6)
[2023-10-12 12:28] LABS: Thyroid Stimulating Hormone 0.611 uIU/mL (0.47-4.68)
[2023-10-12 12:32] LABS: Ferritin 36 ng/mL (11-264)
== END ==
LOC: LAB 10:17
PROVIDERS: Family Provider Internal Medicine; PCP Nurse Practitioner; Referring Provider Nurse Practitioner; Visit Provider Nurse Practitioner
DX: E83.119 Hemochromatosis, unspecified (principal); E78.5 Hyperlipidemia, unspecified; F32.A Depression, unspecified; M85.80 Other specified disorders of bone density and structure, unspecified site; Z79.899 Other long term (current) drug therapy
CPT/HCPCS: 36415; 80053; 80061; 82043; 82570; 82728; 84439; 84443; 84481; 85025

== ENCOUNTER → 2023-11-06 12:16 | Outpatient (CLI) | payer MEDICARE, SELFPAY | PROVIDERS: Family Provider Internal Medicine; PCP Nurse Practitioner; Referring Provider Nurse Practitioner; Visit Provider Nurse Practitioner | DX: Z01.810 Encounter for preprocedural cardiovascular examination (principal) | CPT/HCPCS: 93005; 93010 ==

== ENCOUNTER → 2023-11-12 07:44 | Outpatient (CLI) | payer MEDICARE, SELFPAY | LOC: CAR 07:45 | PROVIDERS: Family Provider Nurse Practitioner; PCP Nurse Practitioner; Referring Provider Nurse Practitioner; Visit Provider Nurse Practitioner | DX: I48.91 Unspecified atrial fibrillation (principal); I48.92 Unspecified atrial flutter | CPT/HCPCS: 93242 ==

== ENCOUNTER → 2023-12-17 12:14 | Outpatient (CLI) | payer MEDICARE, SELFPAY ==
[2023-12-17 14:18] LABS: Add Manual Diff / Slide Review NO; Basophils Absolute Auto 0 /uL (0-100); Basophils Percent Auto 0.9 % (0-2); Eosinophils Absolute Auto 100 /uL (0-450); Hematocrit 39.7 % (36-46); Hemoglobin 13.5 g/dL (12.0-16.0); Lymphocytes Absolute Auto 1300 /uL (1100-4500); Lymphocytes Percent Auto 29.7 % (25-40); Mean Corpuscular Hemoglobin 33.4 PG (26-34); Mean Corpuscular Volume 98.3 fL (80-100); Monocytes Absolute Auto 400 /uL (0-900); Monocytes Percent Auto 7.8 % (3-14); Neutrophils Absolute Auto 2700 /uL (1500-7000); Neutrophils Percent Auto 59.6 % (50-75); Platelet Count 186 X10^3/uL (150-400); Red Blood Cell Count 4.04 X10^6/uL (4.0-5.2); White Blood Cell Count 4.5 X10^3/uL (4.5-11.0)
[2023-12-17 14:38] LABS: Alanine Aminotransferase 13 IU/L (<35); Albumin 4.5 g/dL (3.5-5.0); Albumin Globulin Ratio 1.7 (1.0-2.8); Alkaline Phosphatase 59 U/L (38-126); Aspartate Aminotransferase 24 IU/L (14-36); BUN Creatinine Ratio 28.3 (6-22); Bilirubin Total 0.9 mg/dL (0.2-1.3); Blood Urea Nitrogen 17 mg/dL (7-17); Calcium 9.4 mg/dL (8.4-10.2); Carbon Dioxide 29 mmol/L (22-32); Chloride 108 mmol/L (98-107); Estimated Glomerular Filt Rate > 60 mL/min (>60); Globulin 2.7 g/dL (1.7-4.1); Glucose 81 mg/dL (80-110); HEMOLYSIS < 15 (0-50); Magnesium 2.1 mg/dL (1.6-2.3); Sodium 140 mmol/L (137-145); Total Protein 7.2 g/dL (6.3-8.2)
[2023-12-17 14:41] LABS: HEMOLYSIS < 15 (0-50); Iron 189 ug/dL (37-170)
[2023-12-17 14:53] LABS: Total Iron Binding Capacity 238 ug/dL (265-497); Transferrin 201 mg/dL (206-381)
[2023-12-17 14:54] LABS: Percent Iron Saturation 79 % (15-50)
== END ==
PROVIDERS: Family Provider Nurse Practitioner; PCP Nurse Practitioner; Referring Provider Nurse Practitioner; Visit Provider Nurse Practitioner
DX: E83.119 Hemochromatosis, unspecified (principal); I48.92 Unspecified atrial flutter; I21.29 ST elevation (STEMI) myocardial infarction involving other sites; I44.30 Unspecified atrioventricular block
CPT/HCPCS: 36415; 80053; 83540; 83550; 83735; 85025

== ENCOUNTER → 2023-12-18 10:46 | Outpatient (CLI) | payer MEDICARE, SELFPAY ==
[2023-12-18 11:45] LABS: 585 Gram Check PASS; Amount Collected in g 585 g; Amount Collected mL calc 508 mL; Patient Weight <110 lb NO; Prediastolic 89 mmHg; Presystolic 151 mmHg; Pulse 63 bpm; Site of phlebotomy Left antecubital; Temperature 97.3; Therapeutic Phleb Consent Chec Consent signed @ reg; Therapeutic Phleb Start Time 1115; Therapeutic Phleb Stop Time 1140; Zero Check Sebra Scale PASS
[2023-12-18 11:46] LABS: Postdiastolic BP 86 mmHg; Postsystolic BP 137 mmHg
== END ==
PROVIDERS: Family Provider Nurse Practitioner; PCP Nurse Practitioner; Referring Provider Nurse Practitioner; Visit Provider Nurse Practitioner
DX: E83.119 Hemochromatosis, unspecified (principal)
CPT/HCPCS: 99195

== ENCOUNTER → 2024-01-14 08:39 | Outpatient (CLI) | payer MEDICARE, SELFPAY ==
--- NOTE | 2024-01-14 08:40 | DI.RAD.S_ITS ---
PROCEDURE: XR RIBS RT MIN 3V W CXR 1V INDICATIONS: Right rib pain TECHNIQUE: 2 views of the ribs were acquired, along with a single view chest. COMPARISON: None. FINDINGS: Surgical changes and devices: None. Bones and chest wall: No fractures or dislocations. No suspicious bony lesions. Overlying soft tissues appear unremarkable. Lungs and pleura: No pleural effusions or pneumothorax. Lungs appear clear. Mediastinum: Mediastinal contours appear normal. Heart size is normal. IMPRESSION: No displaced rib fracture or pneumothorax. No acute cardiopulmonary abnormality seen. Dictated by: Elroy Birmingham M.D. on 01/14/2024 at 10:07 Approved by: Elroy Birmingham M.D. on 01/14/2024 at 10:09
== END ==
PROVIDERS: Family Provider Nurse Practitioner; PCP Nurse Practitioner; Referring Provider Nurse Practitioner Family; Visit Provider Nurse Practitioner Family
DX: R07.81 Pleurodynia (principal)
CPT/HCPCS: 71101

== ENCOUNTER → 2024-09-20 07:45 | Outpatient (CLI) | payer MEDICARE, SELFPAY ==
--- NOTE | 2024-09-20 | DI.MG.S_ITS ---
BILATERAL DIGITAL SCREENING MAMMOGRAM 3D/2D WITH CAD: 09/20/2024 CLINICAL: Routine screening. Comparison is made to exams dated: 09/13/2023 mammogram, 02/15/2022 mammogram, 04/27/2020 mammogram, 01/30/2018 mammogram, and 11/28/2016 mammogram - [facility]. There are scattered areas of fibroglandular density (category b / 25%-50% glandular tissue). Current study was also evaluated with a Computer Aided Detection (CAD) system. No significant masses, calcifications, or other findings are seen in either breast. There has been no significant interval change. IMPRESSION: NEGATIVE There is no mammographic evidence of malignancy. A 1 year screening mammogram is recommended. Based on the Tyrer Cuzick model (a risk assessment model) the patient's lifetime risk is 4.2% and her 10 year risk is 2.9%. According to the ACR, ACS, and NCCN guidelines, an annual breast MRI exam along with mammogram is recommended if the patient's lifetime risk is 20% or greater. This exam was interpreted at Station ID: [id number]. NOTE: For mammograms, a report in lay terms will be sent to the patient. Approximately 15% of breast malignancies will not be visualized mammographically. In the management of a palpable breast mass, a negative mammogram must not discourage biopsy of a clinically suspicious lesion. Electronically Signed By: Davida Ko M.D., Ph.D. marcin/marito:09/22/2024 08:54:47 letter sent: Normal Exam ACR BI-RADS Category 1: Negative
== END ==
PROVIDERS: Family Provider Nurse Practitioner; PCP Student in an Organized Health Care Education/Training Program; Referring Provider Student in an Organized Health Care Education/Training Program; Visit Provider Student in an Organized Health Care Education/Training Program
DX: Z12.31 Encounter for screening mammogram for malignant neoplasm of breast (principal)
CPT/HCPCS: 77063; 77067

== ENCOUNTER 2024-10-24 11:34 | Observation (INO) | payer MEDICARE, SELFPAY ==
[2024-10-24] VITALS (19 sets, daily range): BP systolic 111–191; BP diastolic 52–102; PULSE 53–114; RESP 12–37; TEMP 36.3–36.7; O2SAT 95–100; BMI 27.4
--- NOTE | 2024-10-24 11:57 | EKG_ITS ---
[place] [address] [address] [address], [place] [address] Test Date: 2024-10-24 Pat Name: Le Carolina Department: Room: 208 Gender: Female Desktop Administrator: LEATHA : 1955 Requested By: Order Number: [id number] Reading MD: Richard Templeton MD Measurements Intervals Emmons Rate: 58 P: 78 VT: 310 QRS: -64 QRSD: 148 T: 89 QT: 472 QTc: 463 Interpretive Statements Sinus bradycardia with 1st degree AV block Left axis deviation Left bundle branch block Electronically Signed On 10-26-2024 12:58:01 PST by Richard Templeton MD
--- NOTE | 2024-10-24 12:29 | DI.RAD.S_ITS ---
PROCEDURE: XR CHEST 1V INDICATIONS: Possible stroke TECHNIQUE: One view of the chest was acquired. COMPARISON: [facility], CR, XR CHEST 2V, 08/17/2023, 7:53. FINDINGS: Surgical changes and devices: None. Lungs and pleura: Lungs are clear. No pleural effusions or pneumothorax. Mediastinum: Mediastinal contours appear normal. Heart size is normal. Bones and chest wall: No suspicious bony lesions. Overlying soft tissues appear unremarkable. IMPRESSION: No acute cardiopulmonary abnormality is seen. Dictated by: Rei Cameron M.D. on 10/24/2024 at 13:31 Approved by: Rei Cameron M.D. on 10/24/2024 at 13:32
--- NOTE | 2024-10-24 12:30 | DI.CT.S_ITS ---
PROCEDURE: CT ANGIO HEAD AND NECK INDICATIONS: TIA via ocular migraine TECHNIQUE: After the administration of intravenous contrast, 1 mm thick sections acquired from the aortic arch through the [place]. 3-dimensional zsjzwar-dvtxuptzz-lnaunfefdg (MIP) and/or volume rendering reformats were acquired of the central intracranial vasculature and neck separately. For radiation dose reduction, the following was used: automated exposure control, adjustment of mA and/or kV according to patient size. COMPARISON: [facility], CT, CT HEAD/BRAIN WO CON, 10/24/2024, 13:10. FINDINGS: Image quality: Diagnostic. BRAIN: CSF spaces: Ventricles are normal in size and shape. Basal cisterns are patent. No extra-axial fluid collections. Brain: No significant abnormality of the brain can be seen. Skull and face: Calvarium and facial bones appear intact, without suspicious lesions. Orbits appear normal. Sinuses: Sinuses and mastoids are clear. HEAD CT ANGIOGRAPHY: Anterior circulation: Intracranial internal carotid arteries are normal in size and flow. The flow within the paired anterior cerebral arteries is normal and symmetric. The flow within the middle cerebral arteries is normal and symmetric. The anterior communicating artery is seen. No aneurysms are seen. Posterior circulation: Visualized portions of the vertebral arteries demonstrate normal caliber, and join to form a normal appearing basilar artery. Normal variant diminutive V4 segment of right vertebral artery. Flow within the posterior cerebral arteries is normal and symmetric. No aneurysms are seen. NECK CT ANGIOGRAPHY: Carotid system: The great vessels demonstrate a conventional anatomy as they arise from the aortic arch. The origins of the common carotid arteries appear patent. The common carotid arteries demonstrate normal caliber and courses. The bifurcation regions are both widely patent. The internal carotid arteries demonstrate normal calibers and courses. Posterior circulation: The origins of the vertebral arteries both appear widely patent. The more superior extracranial portions of both vertebral arteries also demonstrate normal courses and calibers. Normal variant diminutive V4 segment of right vertebral artery. They join to form a normal appearing basilar artery. Soft tissues: Visualized neck soft tissues demonstrate no suspicious abnormalities. Bones: No suspicious bony lesions. Visualized cervical spine appears normally aligned. IMPRESSION: No significant intracranial arterial abnormality is seen. No significant abnormality is seen within the arteries of the neck. Any quantitative measurements of stenosis were performed using NASCET criteria. Dictated by: George Veliz M.D. on 10/24/2024 at 13:47 Approved by: George Veliz M.D. on 10/24/2024 at 13:50
--- NOTE | 2024-10-24 12:30 | DI.CT.S_ITS ---
PROCEDURE: CT HEAD/BRAIN WO CON INDICATIONS: TIA via ocular migraine TECHNIQUE: Noncontrast 4.5 mm thick angled axial sections acquired from the foramen magnum to the vertex, with coronal and sagittal reformats. For radiation dose reduction, the following was used: automated exposure control, adjustment of mA and/or kV according to patient size. COMPARISON: [facility], CT, CT HEAD WITHOUT CONTRAST, 08/05/2024, 12:26. FINDINGS: Image quality: Diagnostic. CSF spaces: Basal cisterns are patent. No extra-axial fluid collections. The ventricles are symmetric in size and shape. Brain: No intracranial bleeds or masses. There is cerebral volume loss for age, with resultant ventricular and sulcal prominence. There are periventricular and deep white matter chronic small vessel ischemic changes. There is intracranial internal carotid artery atherosclerosis. Skull and face: Calvarium and visualized facial bones appear intact, without suspicious lesions. Sinuses: Visualized sinuses and mastoids are clear. IMPRESSION: No acute intracranial pathology. Dictated by: George Veliz M.D. on 10/24/2024 at 13:43 Approved by: George Veliz M.D. on 10/24/2024 at 13:46
[2024-10-24 12:50] LABS: Add Manual Diff / Slide Review NO; Basophils Absolute Auto 0 /uL (0-100); Eosinophils Absolute Auto 200 /uL (0-450); Eosinophils Percent Auto 3.6 % (2-4); Hematocrit 40.1 % (36-46); Hemoglobin 13.7 g/dL (12.0-16.0); Lymphocytes Absolute Auto 1200 /uL (1100-4500); Lymphocytes Percent Auto 27.3 % (25-40); Mean Corpuscular HGB Conc 34.2 % (30-36); Mean Corpuscular Hemoglobin 32.7 PG (26-34); Mean Corpuscular Volume 95.6 fL (80-100); Monocytes Absolute Auto 400 /uL (0-900); Monocytes Percent Auto 9.3 % (3-14); Neutrophils Absolute Auto 2600 /uL (1500-7000); Neutrophils Percent Auto 58.8 % (50-75); Platelet Count 208 X10^3/uL (150-400); Red Blood Cell Count 4.19 X10^6/uL (4.0-5.2); Red Cell Distribution Width 15.8 % (11.6-14.8); White Blood Cell Count 4.4 X10^3/uL (4.5-11.0)
[2024-10-24 12:52] LABS: INR 1.2 (0.9-1.3); Prothrombin Time 13.4 SECONDS (9.4-12.5)
[2024-10-24 12:55] LABS: Alanine Aminotransferase 19 IU/L (<35); Albumin 4.3 g/dL (3.5-5.0); Albumin Globulin Ratio 1.5 (1.0-2.8); Alkaline Phosphatase 71 U/L (38-126); Aspartate Aminotransferase 31 IU/L (14-36); BUN Creatinine Ratio 23.5 (6-22); Bilirubin Total 0.8 mg/dL (0.2-1.3); Blood Urea Nitrogen 16 mg/dL (7-17); Calcium 9.3 mg/dL (8.4-10.2); Carbon Dioxide 25 mmol/L (22-32); Chloride 106 mmol/L (98-107); Creatine Kinase 53 U/L (30-135); Estimated Glomerular Filt Rate > 60 mL/min (>60); Globulin 2.8 g/dL (1.7-4.1); Glucose 92 mg/dL (80-110); HEMOLYSIS < 15 (0-50); Magnesium 1.9 mg/dL (1.6-2.3); PTT Partial Thromboplastin Tim 42 SECONDS (25.1-36.5); Potassium 4.2 mmol/L (3.4-5.1); Sodium 138 mmol/L (137-145); Total Protein 7.1 g/dL (6.3-8.2)
--- NOTE | 2024-10-24 12:58 | ED_ITS ---
HPI - Neuro Symptoms/Deficit General Chief Complaint: Neuro Symptoms/Deficit Stated Complaint: offset Vision , Headache Time Seen by Provider: 10/24/24 12:54 Source: patient Mode of arrival: Ambulatory History of Present Illness HPI Narrative: Patient presents with dizziness on ambulation that does not change with head movements. She reports a history of ocular migraines characterized by flashy glitter that eventually wipes out her field of vision. This morning, she experienced vision changes similar to her ocular migraines but different in nature. She had an ablation procedure in August and experienced a similar episode in the recovery room. The patient denies any recent changes in her gait. She was advised by her tile and mottle supervisor to come to the emergency department after describing her symptoms. She reports that her double vision has resolved, and she is currently ambulating independently with a steady gait. Past Medical History: History of ocular migraines, recent ablation procedure in August. Surgical History: Ablation procedure in August. On Anticoagulants: Yes (apixaban 5mg bid) Related Data Home Medications Medication Instructions Recorded Confirmed dabigatran etexilate 150 mg capsule mg PO BID 12/17/23 06/16/24 Allergies Allergy/AdvReac Type Severity Reaction Status Date / Time doxycycline AdvReac Mild esophogeal Verified 06/16/24 13:26 burning Review of Systems Review of Systems Narrative: Constitutional: Denies fever, chills, or weight loss. Eyes: Reports history of ocular migraines with vision changes, currently no double vision. Neurological: Reports dizziness on ambulation, no recent changes in gait. Cardiovascular: Denies chest pain, palpitations, or syncope. Respiratory: Denies shortness of breath or cough. Gastrointestinal: Denies nausea, vomiting, or abdominal pain. Genitourinary: Denies dysuria or hematuria. Musculoskeletal: Denies joint pain or swelling. Skin: Denies rashes or lesions. Psychiatric: Denies anxiety or depression. Hematologic/Lymphatic On Anticoagulants: Yes (apixaban 5mg bid) Patient History Medical History T wave inversion on electrocardiogram Septal infarction AV block Atrial flutter by electrocardiogram Chronic left hip pain Depression Hyperlipidemia Osteopenia Chronic pain of right thumb Right shoulder pain Neck pain on right side Skin lesion of left leg Hair loss Hemochromatosis Allergic rhinitis Cellulitis of nose, external Social History household members: friend(s) Smoking Status: Never smoker alcohol intake: never Smoking Status: Never smoker Exam Narrative Exam Narrative: General: Well appearing, well nourished, in no distress. Skin: Good turgor, no rash, unusual bruising or prominent lesions. Head: Normocephalic, atraumatic. HEENT: Conjunctiva clear, EOM intact, PERRL, Mucous membranes moist. Neck: Supple, normal ROM. Heart: Regular rate and rhythm, no murmur or gallop or rubs. Lungs: Clear to auscultation. No rales, rhonchi, or wheezes. Abdomen: Soft and nontender. Bowel sounds normal. No mass or hernia. Back: Spine normal without deformity or tenderness, no CVA tenderness. Extremities: No deformities, edema. Peripheral pulses intact. Neurologic: CN 2-12 normal. Normal sensation and motor exam. No evidence of discoordination, good strength in bilateral lower extremities, no instability on Romberg testing. Psychiatric: Oriented X3. Normal mood and affect. Initial Vital Signs Initial Vital Signs: Vital Signs Temperature 98.1 F 10/24/24 12:00 Pulse Rate 58 L 10/24/24 12:00 Respiratory Rate 14 10/24/24 12:00 Blood Pressure 191/102 H 10/24/24 12:00 Pulse Oximetry 99 10/24/24 12:00 Oxygen Delivery Method Room Air 10/24/24 12:00 Scores ABCD2 Age >= 60 years: yes Initial BP. Either SBP >= 140 or DBP >= 90.: yes Clinical features of the TIA: other symptoms Duration of symptoms: 10-59 minutes History of diabetes: no ABCD2 Score: 3 Course Orders Ordered: ED Orders 10/24/24 12:12 Complete Blood Count AUTO DIFF Stat Comprehensive Metabolic Panel Stat Magnesium Stat PTT Partial Thromboplastin Jerod Stat Prothrombin Time INR Stat Troponin & CK Cardiac Panel Stat 10/24/24 12:29 XR chest 1V Stat EKG-12 Lead Stat 10/24/24 12:30 CT angio head and neck Stat CT head/brain wo con Stat 10/24/24 16:15 Respiratory Panel (Film Array) Stat Ondansetron HCl (Ondansetron 4 Mg/2 Ml Inj) 4 mg IV NOW PRN PRN Reason: Nausea And Vomiting Ondansetron HCl (Ondansetron 4 Mg Odt) 4 mg SL NOW PRN PRN Reason: Nausea And Vomiting Vital Signs Vital signs: Vital Signs - 8 hr 10/24/24 12:00 10/24/24 12:00 10/24/24 12:35 Temperature 98.1 F Pulse Rate 58 L 66 114 H Respiratory Rate 14 22 30 H Blood Pressure 191/102 H 170/79 H 163/76 H Pulse Oximetry 99 99 Oxygen Delivery Method Room Air 10/24/24 12:36 10/24/24 13:00 10/24/24 14:00 Temperature Pulse Rate 61 59 L 61 Respiratory Rate 12 19 14 Blood Pressure Pulse Oximetry 99 98 96 Oxygen Delivery Method Room Air 10/24/24 14:01 10/24/24 14:30 10/24/24 15:00 Temperature Pulse Rate 56 L 54 L 58 L Respiratory Rate 14 18 20 Blood Pressure 132/61 131/67 Pulse Oximetry 97 99 97 Oxygen Delivery Method 10/24/24 15:01 10/24/24 15:30 10/24/24 16:00 Temperature Pulse Rate 55 L 53 L Respiratory Rate 16 16 Blood Pressure 126/72 135/62 127/91 H Pulse Oximetry 99 99 Oxygen Delivery Method Room Air 10/24/24 16:00 10/24/24 16:30 10/24/24 16:30 Temperature Pulse Rate 59 L 64 Respiratory Rate 24 24 Blood Pressure 145/65 H Pulse Oximetry 98 97 Oxygen Delivery Method 10/24/24 17:00 10/24/24 17:30 Temperature Pulse Rate 68 64 Respiratory Rate 37 H 24 Blood Pressure 127/59 L Pulse Oximetry 99 96 Oxygen Delivery Method MDM - Neuro Symptoms/Deficit Lab Data 10/24/24 12:12 10/24/24 12:12 Labs: Lab Results 10/24/24 10/24/24 Range/Units 12:12 16:15 WBC 4.4 L (4.5-11.0) X10^3/uL RBC 4.19 (4.0-5.2) X10^6/uL Hgb 13.7 (12.0-16.0) g/dL Hct 40.1 (36-46) % MCV 95.6 (80-100) fL MCH 32.7 (26-34) PG MCHC 34.2 (30-36) % RDW 15.8 H (11.6-14.8) % Plt Count 208 (150-400) X10^3/uL Neut % (Auto) 58.8 (50-75) % Lymph % (Auto) 27.3 (25-40) % [place] % (Auto) 9.3 (3-14) % Eos % (Auto) 3.6 (2-4) % Baso % (Auto) 1.0 (0-2) % Neut # (Auto) 2600 (7228-7136) /uL Lymph # (Auto) 1200 (1247-8381) /uL [place] # (Auto) 400 (0-900) /uL Eos # (Auto) 200 (0-450) /uL Baso # (Auto) 0 (0-100) /uL PT 13.4 H (9.4-12.5) SECONDS INR 1.2 (0.9-1.3) APTT 42 H (25.1-36.5) SECONDS Sodium 138 (137-145) mmol/L Potassium 4.2 (3.4-5.1) mmol/L Chloride 106 (98-107) mmol/L Carbon Dioxide 25 (22-32) mmol/L BUN 16 (7-17) mg/dL Creatinine 0.68 (0.52-1.04) mg/dL Estimated GFR > 60 (>60) mL/min BUN/Creatinine Ratio 23.5 H (6-22) Glucose 92 (80-110) mg/dL Calcium 9.3 (8.4-10.2) mg/dL Magnesium 1.9 (1.6-2.3) mg/dL Total Bilirubin 0.8 (0.2-1.3) mg/dL AST 31 (14-36) IU/L ALT 19 (<35) IU/L Alkaline Phosphatase 71 (38-126) U/L Total Creatine Kinase 53 (30-135) U/L Troponin I < 0.012 (0.01-0.034) ng/mL Total Protein 7.1 (6.3-8.2) g/dL Albumin 4.3 (3.5-5.0) g/dL Globulin 2.8 (1.7-4.1) g/dL Albumin/Globulin Ratio 1.5 (1.0-2.8) Chlamy pneumoniae PCR Not detected (Not Detect) Adenovirus (PCR) Not detected (Not Detect) B. pertussis DNA (PCR) Not detected (Not Detect) B.parapertussis DNA PCR Not detected (Not Detecte) Coronavirus OC43 (PCR) Not detected (Not Detect) Coronavirus HKU1 (PCR) Not detected (Not Detect) Coronavirus 229E (PCR) Not detected (Not Detect) SARS-CoV-2 (PCR) Not detected (Not Detecte) Coronavirus NL63 (PCR) Not detected (Not Detect) Human Metapneumovir PCR Not detected (Not Detect) Influenza Type A (PCR) Not detected (Not Detect) Influenza Type B (PCR) Not detected (Not Detect) M. pneumoniae (PCR) Not detected (Not Detect) Parainfluenza 1 (PCR) Not detected (Not Detect) Parainfluenza 2 (PCR) Not detected (Not Detect) Parainfluenza 3 (PCR) Not detected (Not Detect) Parainfluenza 4 (PCR) Not detected (Not Detect) RSV (PCR) Not detected (Not Detect) Entero/Rhino (PCR) Not detected (Not Detect) Point of Care Testing Glucose POC 72 Urine Dip Bedside Urine Glucose Negative Bedside Urine Bilirubin - Negative Bedside Urine Ketone - Negative Urine Specific [place] 1.005 Bedside Urine Occult Blood - Negative Bedside Urine pH 6.0 Bedside Urine Protein - Negative Bedside Urine Urobilinogen - Negative Bedside Urine Nitrite - Negative Bedside Urine Leukocytes - Negative Esterase On independent review of patient's laboratory workup they are overall reassuring and do not need any acute emergency department did mention urinalysis is negative ECG Data Attestation: I personally reviewed and interpreted this ECG as follows: Interpretation: Patient's EKGs shows a sinus rhythm with a rate of 58, sinus bradycardia, appears to have a first-degree AV block with a WI interval of 310, QTC of 463, no significant ST elevations depressions or findings concerning for acute ischemic change MDM Narrative Medical decision making narrative: INITIAL EVALUATION AND PLAN: - Monitor for any recurrence of double vision or other neurological symptoms. - Consider further evaluation if symptoms persist or worsen. -consider TIA and differential, we will obtain basic lab work, CTA of head, CT of head - Follow up with tile and mottle supervisor/neurologist as needed. - Differential diagnosis includes but is not limited to: ocular migraine, vestibular disorder, transient ischemic attack (TIA), and other neurological conditions. -on my independent evaluation of patient's CT imaging I see no signs of large mass, bleed or other concerning features will follow up with radiology report -case was discussed with neurologist regarding her vertical diplopia now resolved and the results of her CT of the head and neck with angio, they requested the patient be admitted for MRI for ongoing workup of potential TIA a given chronic changes to the posterior circulation. Discharge Plan Departure Patient Disposition: Admitted as Observation Admit Date/Time: 10/24/24 17:58 Admit Provider: Dwight Loya
[2024-10-24 13:07] LABS: Troponin I < 0.012 ng/mL (0.01-0.034)
[2024-10-24 17:24] LABS: Adenovirus Not Detected (Not Detect); B. parapertussis Not Detected (Not Detecte); Bordetella pertussis Not Detected (Not Detect); Chlamydophila pneumoniae Not Detected (Not Detect); Coronavirus 229E Not Detected (Not Detect); Coronavirus HKU1 Not Detected (Not Detect); Coronavirus NL 63 Not Detected (Not Detect); Coronavirus OC43 Not Detected (Not Detect); Human Metapneumovirus Not Detected (Not Detect); Human Rhinovirus/Enterovirus Not Detected (Not Detect); Influenza A Not Detected (Not Detect); Influenza B Not Detected (Not Detect); Mycoplasma pneumoniae Not Detected (Not Detect); Parainfluenza Virus 1 Not Detected (Not Detect); Parainfluenza Virus 2 Not Detected (Not Detect); Parainfluenza Virus 3 Not Detected (Not Detect); Parainfluenza Virus 4 Not Detected (Not Detect); Respiratory Syncytial Virus Not Detected (Not Detect); SARS- CoV-2 Not Detected (Not Detecte)
--- NOTE | 2024-10-24 18:24 | PM.HP.1 ---
History of Present Illness History of Present Illness Date Patient Seen: 10/24/24 Time Patient Seen: 17:00 Chief complaint: offset Vision , Headache Narrative: This is a 69-year-old female with a past medical history of paroxysmal AFib status post ablation on August 05, 2024 currently on anticoagulation with apixaban who presented to the emergency room after an approximate 1 hour episode of double vision. Patient states that overnight last night she may have had a brief episode of double vision but is in the dark, but she did note a right-sided sharp pain like a very sharp headache, which resolved before she went to bed. When she woke up in the morning she felt normal, and had no issues with vision. She thinks that this started around 8:00 a.m. in the morning, and lasted for maybe an hour before suddenly resolving again. She waxed and waned about whether to come to the emergency room. According to the ER provider she called an eye doctor who recommended she come to the ER for further evaluation. She denies any recent fevers, chills, chest pain, palpitations, dyspnea or dyspnea on exertion, recent sick contacts. She does report increased anxiety after the of her sister and having to take care of her son, and asked about restarting her previous citalopram, though unfortunately she is still on amiodarone for another month. In the emergency room, the patient was mildly hypertensive initially, which did trend down without any medications. Laboratory evaluation was unremarkable. Respiratory panel was negative. [facility] Medical History T wave inversion on electrocardiogram Septal infarction AV block Atrial flutter by electrocardiogram Chronic left hip pain Depression Hyperlipidemia Osteopenia Chronic pain of right thumb Right shoulder pain Neck pain on right side Skin lesion of left leg Hair loss Hemochromatosis Allergic rhinitis Cellulitis of nose, external Social History household members: friend(s) Smoking Status: Never smoker alcohol intake: never Meds Home Medications and Allergies Home Medications Medication Instructions Recorded Confirmed Type amiodarone 200 mg tablet 200 mg PO BEDTIME 10/24/24 10/24/24 History Allergies Allergy/AdvReac Type Severity Reaction Status Date / Time doxycycline AdvReac Mild esophogeal Verified 06/16/24 13:26 burning Review of Systems Review of Systems Narrative: All other systems reviewed with the patient and are negative unless otherwise stated. Exam Vital Signs (past 8 hours): - 10/24/24 12:00 10/24/24 12:00 10/24/24 12:35 Temperature 98.1 F Pulse Rate 58 L 66 114 H Respiratory Rate 14 22 30 H Blood Pressure 191/102 H 170/79 H 163/76 H Pulse Oximetry 99 99 Oxygen Delivery Method Room Air 10/24/24 12:36 10/24/24 13:00 10/24/24 14:00 Temperature Pulse Rate 61 59 L 61 Respiratory Rate 12 19 14 Blood Pressure Pulse Oximetry 99 98 96 Oxygen Delivery Method Room Air 10/24/24 14:01 10/24/24 14:30 10/24/24 15:00 Temperature Pulse Rate 56 L 54 L 58 L Respiratory Rate 14 18 20 Blood Pressure 132/61 131/67 Pulse Oximetry 97 99 97 Oxygen Delivery Method 10/24/24 15:01 10/24/24 15:30 10/24/24 16:00 Temperature Pulse Rate 55 L 53 L Respiratory Rate 16 16 Blood Pressure 126/72 135/62 127/91 H Pulse Oximetry 99 99 Oxygen Delivery Method Room Air 10/24/24 16:00 10/24/24 16:30 10/24/24 16:30 Temperature Pulse Rate 59 L 64 Respiratory Rate 24 24 Blood Pressure 145/65 H Pulse Oximetry 98 97 Oxygen Delivery Method Oxygen Delivery Method Room Air Narrative Exam Narrative: General:? Patient is well developed and well nourished, in no distress at this time. Chest:? Normal AP diameter and contour without kyphoscoliosis, no tachypnea, equal chest rise bilaterally. Lungs:? CTA b/l no wheezing rhonchi or rales. Cardio:?RRR no m/r/g. Musculoskeletal:? Muscle strength and tone are equal within normal limits, no deformity. Extremities: No edema or joint effusions. No cyanosis or clubbing. Neuro:? Alert and orientated x3,? sensation to touch intact in all extremities, equal strength bilaterally, no gross deficits noted of cranial nerves. Psych:? Patient has a well-kept appearance, appropriate affect, mental status attitude thought context and judgment are appropriate for age. Objective ECG Impression: Normal sinus rhythm on telemetry, not ordered in the ER. Ordered now. Labs 10/24/24 12:12 10/24/24 12:12 Labs: Laboratory Results - last 24 hr 10/24/24 10/24/24 12:12 16:15 WBC 4.4 L RBC 4.19 Hgb 13.7 Hct 40.1 MCV 95.6 MCH 32.7 MCHC 34.2 RDW 15.8 H Plt Count 208 Neut % (Auto) 58.8 Lymph % (Auto) 27.3 [place] % (Auto) 9.3 Eos % (Auto) 3.6 Baso % (Auto) 1.0 Neut # (Auto) 2600 Lymph # (Auto) 1200 [place] # (Auto) 400 Eos # (Auto) 200 Baso # (Auto) 0 PT 13.4 H INR 1.2 APTT 42 H Sodium 138 Potassium 4.2 Chloride 106 Carbon Dioxide 25 BUN 16 Creatinine 0.68 Estimated GFR > 60 BUN/Creatinine Ratio 23.5 H Glucose 92 Calcium 9.3 Magnesium 1.9 Total Bilirubin 0.8 AST 31 ALT 19 Alkaline Phosphatase 71 Total Creatine Kinase 53 Troponin I < 0.012 Total Protein 7.1 Albumin 4.3 Globulin 2.8 Albumin/Globulin Ratio 1.5 Chlamy pneumoniae PCR Not detected Adenovirus (PCR) Not detected B. pertussis DNA (PCR) Not detected B.parapertussis DNA PCR Not detected Coronavirus OC43 (PCR) Not detected Coronavirus HKU1 (PCR) Not detected Coronavirus 229E (PCR) Not detected SARS-CoV-2 (PCR) Not detected Coronavirus NL63 (PCR) Not detected Human Metapneumovir PCR Not detected Influenza Type A (PCR) Not detected Influenza Type B (PCR) Not detected M. pneumoniae (PCR) Not detected Parainfluenza 1 (PCR) Not detected Parainfluenza 2 (PCR) Not detected Parainfluenza 3 (PCR) Not detected Parainfluenza 4 (PCR) Not detected RSV (PCR) Not detected Entero/Rhino (PCR) Not detected Assessment & Plan Assessment & Plan narrative: 1. Vertical diplopia, transient, likely TIA - CT and CTA unremarkable in the ER - MR brain without contrast in the AM - patient is already on AC with eliquis, no significant stenosis on CTA, presume due to afib - continue telemetry overnight. NSR on EKG. - A1c, TSH, lipids ordered - no significant abnormalities on CBC or CMP. 2. Paroxysmal atrial fibrillation status post ablation, on chronic anticoagulation - continue amiodarone and apixaban 3. Anxiety, acute on chronic, mild - discussed CBT and seeking treatment with therapy, unable to start SSRI again due to risk of prolonged Qt with amiodarone - due to recent of her sister and care of sister's house and patient's nephew. Code: Full, surrogate is patient's friend DVT: on apixaban I have utilized all available immediate resources to obtain, update, or review the patient's current medications. Dispo: patient admitted under observation status. Likely discharge home tomorrow. Additional history obtained via discussions with the ER provider. These discussions contributed to the creation of the above assessment and plan. I have reviewed patient's presenting documentation, labs, and imaging personally. Time-Based Coding :: [TOTAL MINUTES] spent with patient and on the chart (including review of chart, obtaining history, exam, reviewing outside data, placing orders, documenting exam and treatment plan, and counseling patient) on [DATE].
--- NOTE | 2024-10-24 19:17 | DI.MRI.S_ITS ---
PROCEDURE: MR HEAD/BRAIN WO CON INDICATIONS: transient vertical diplopia, please evaluate for CVA TECHNIQUE: Non-contrast axial T1 spin echo, axial T2 fast spin echo, sagittal and axial FLAIR, coronal T2 fast spin echo, axial gradient echo, axial diffusion and ADC through the brain. COMPARISON: None. FINDINGS: Image quality: Diagnostic, with note made of motion artifact. CSF spaces: Ventricles appear symmetric in size and shape. Basal cisterns are patent. No extra-axial fluid collections. Brain: No intracranial bleeds or mass effects. There is cerebral volume loss for age. There are periventricular and deep white matter chronic small vessel ischemic changes. Brainstem appears normal. Diffusion-weighted images show no acute infarct. No chronic ischemic insults. Normal intravascular flow voids are present. Skull and face: Calvarial bone marrow is normal in signal. Orbits are normal. Sinuses: There is a mucous retention cyst seen within the anterior left maxillary sinus. Sinuses and mastoids are otherwise clear. IMPRESSION: No findings of acute or subacute infarction can be seen. Note is made of age-appropriate brain parenchymal volume loss and chronic small vessel ischemic changes. Dictated by: Samir Sesay M.D. on 10/25/2024 at 13:42 Approved by: Samir Sesay M.D. on 10/25/2024 at 13:43
[2024-10-24] MEDS: APIXABAN 5 MG TABLET PO (21:43)
[2024-10-24] MEDS: AMIODARONE 200 MG TABLET PO (21:43)
[2024-10-24] MEDS: ACETAMINOPHEN 325 MG TABLET 650 MG PO (21:45)
[2024-10-25] VITALS (7 sets, daily range): BP systolic 112–135; BP diastolic 55–61; PULSE 58–60; RESP 14–18; TEMP 36.2–36.3; O2SAT 95–100
[2024-10-25 05:53] LABS: Add Manual Diff / Slide Review NO; Basophils Absolute Auto 100 /uL (0-100); Basophils Percent Auto 1.1 % (0-2); Eosinophils Absolute Auto 200 /uL (0-450); Eosinophils Percent Auto 4.3 % (2-4); Hematocrit 36.1 % (36-46); Hemoglobin 12.7 g/dL (12.0-16.0); Lymphocytes Absolute Auto 1500 /uL (1100-4500); Lymphocytes Percent Auto 32.4 % (25-40); Mean Corpuscular HGB Conc 35.1 % (30-36); Mean Corpuscular Hemoglobin 33.2 PG (26-34); Mean Corpuscular Volume 94.5 fL (80-100); Monocytes Absolute Auto 400 /uL (0-900); Monocytes Percent Auto 8.2 % (3-14); Neutrophils Absolute Auto 2400 /uL (1500-7000); Platelet Count 201 X10^3/uL (150-400); Red Blood Cell Count 3.82 X10^6/uL (4.0-5.2); Red Cell Distribution Width 15.5 % (11.6-14.8); White Blood Cell Count 4.5 X10^3/uL (4.5-11.0)
[2024-10-25 06:18] LABS: Erythrocyte Sedimentation Rate 10 MM/HR (0-20)
[2024-10-25 06:20] LABS: Alanine Aminotransferase 17 IU/L (<35); Albumin 3.6 g/dL (3.5-5.0); Albumin Globulin Ratio 1.4 (1.0-2.8); Alkaline Phosphatase 60 U/L (38-126); Aspartate Aminotransferase 30 IU/L (14-36); BUN Creatinine Ratio 23.1 (6-22); Bilirubin Total 0.5 mg/dL (0.2-1.3); Blood Urea Nitrogen 15 mg/dL (7-17); Calcium 8.9 mg/dL (8.4-10.2); Carbon Dioxide 26 mmol/L (22-32); Chloride 109 mmol/L (98-107); Cholesterol 228 mg/dL (140-199); Estimated Glomerular Filt Rate > 60 mL/min (>60); Globulin 2.6 g/dL (1.7-4.1); Glucose 83 mg/dL (80-110); HDL Cholesterol 80 mg/dL (40-60); HEMOLYSIS < 15 (0-50); LDL Cholesterol Calculated 140 mg/dL (<100); Magnesium 1.9 mg/dL (1.6-2.3); Potassium 3.7 mmol/L (3.4-5.1); Sodium 139 mmol/L (137-145); Total Protein 6.2 g/dL (6.3-8.2); Triglycerides 42 mg/dL (35-150)
[2024-10-25 07:04] LABS: TSH w/ Reflex to FT4 1.13 uIU/mL (0.47-4.68)
[2024-10-25 07:44] LABS: C-Reactive Protein Quant < 0.5 mg/dL (<1.0)
[2024-10-25] MEDS: APIXABAN 5 MG TABLET PO (08:20)
--- NOTE | 2024-10-25 10:09 | PC.NURSE ---
Addendum entered by Gwen Rush R.N. 10/25/24 16:24: Incorrect patient, disregard Original Note: Day Shift, Pt left to OR, off floor
--- NOTE | 2024-10-25 11:20 | EKG_ITS ---
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
--- NOTE | 2024-10-25 13:49 | P.DS_ITS ---
History of Present Illness History of Present Illness Chief complaint: offset Vision , Headache Narrative: Per history and physical: This is a 69-year-old female with a past medical history of paroxysmal AFib status post ablation on August 05, 2024 currently on anticoagulation with apixaban who presented to the emergency room after an approximate 1 hour episode of double vision. Patient states that overnight last night she may have had a brief episode of double vision but is in the dark, but she did note a right- sided sharp pain like a very sharp headache, which resolved before she went to bed. When she woke up in the morning she felt normal, and had no issues with vision. She thinks that this started around 8:00 a.m. in the morning, and lasted for maybe an hour before suddenly resolving again. She waxed and waned about whether to come to the emergency room. According to the ER provider she called an eye doctor who recommended she come to the ER for further evaluation. She denies any recent fevers, chills, chest pain, palpitations, dyspnea or dyspnea on exertion, recent sick contacts. She does report increased anxiety after the of her sister and having to take care of her son, and asked about restarting her previous citalopram, though unfortunately she is still on amiodarone for another month. In the emergency room, the patient was mildly hypertensive initially, which did trend down without any medications. Laboratory evaluation was unremarkable. Respiratory panel was negative. Discharge Providers Provider Date of admission: 10/24/24 17:58 Discharge Date: 10/25/24 Primary care physician: Erika Lenz MD Discharge provider: Vibha Lake MD Summary Hospital Course Discharge Diagnosis: 1. Vertical diplopia, transient, suspected TIA 2. Paroxysmal atrial fibrillation, status post ablation, on chronic anticoagulation 3. Anxiety, acute on chronic, mild 4. Hyperlipidemia Hospital Course: Patient was admitted with acute onset of double vision approximately 1 hour prior to arrival in the emergency department. She also developed a sharp sudden headache. Symptoms were somewhat stuttering. She was initially mildly hypertensive in the emergency department but then her blood pressure normalized without intervention. Her symptoms fully resolved. Initial imaging was negative for evidence of stroke. She was monitored on telemetry and remained in sinus rhythm. Glucose was within normal limits. Hemoglobin A1c is pending at the time of this dictation. Lipid panel revealed a total cholesterol of 228, triglycerides 42, LDL 140, HDL of 80. TSH was within normal limits at 1.13. After further discussion, patient was amenable to initiating statin therapy. Discussed risks and benefits. Atorvastatin was initiated. She is to follow-up with her PCP for follow-up laboratories. Symptoms have fully resolved at the time of discharge. MRI was negative for acute CVA. Status at Discharge Cognitive/behavioral status at discharge: at baseline, oriented Functional status at discharge: independent ambulation Overall status at discharge: patient is back to baseline Time Spent with Patient Time spent: Greater than 30 minutes Exam Vital Signs (past 8 hours): - 10/25/24 07:00 10/25/24 08:00 10/25/24 11:56 Temperature 97.4 F L Pulse Rate 59 L Respiratory Rate 16 Blood Pressure 113/61 Pulse Oximetry 98 98 95 Oxygen Delivery Method Room Air Room Air Oxygen Flow Rate 0 10/25/24 12:00 Temperature Pulse Rate 60 Respiratory Rate 18 Blood Pressure 135/61 Pulse Oximetry 98 Oxygen Delivery Method Oxygen Flow Rate 0 Oxygen Delivery Method Room Air Oxygen Flow Rate 0 Narrative Exam Narrative: GEN: Alert and oriented x 3, NAD HEENT:NC, Face symmetric CHEST: Respiratory excursions symmetric, CTAB CV: RRR, no M/R/G ABD: Soft, NT/ND, BT present in all 4 quadrants, no organomegaly or masses EXTR: warm, well perfused, no C/C/E SKIN: warm and dry, no rash NEURO: Alert and oriented x 3, nonfocal Objective Labs 10/25/24 05:23 10/25/24 05:23 Labs: Laboratory Results - last 24 hr 10/24/24 10/25/24 16:15 05:23 WBC 4.5 RBC 3.82 L Hgb 12.7 Hct 36.1 MCV 94.5 MCH 33.2 MCHC 35.1 RDW 15.5 H Plt Count 201 Neut % (Auto) 54.0 Lymph % (Auto) 32.4 Elliott % (Auto) 8.2 Eos % (Auto) 4.3 H Baso % (Auto) 1.1 Neut # (Auto) 2400 Lymph # (Auto) 1500 Elliott # (Auto) 400 Eos # (Auto) 200 Baso # (Auto) 100 ESR 10 Sodium 139 Potassium 3.7 Chloride 109 H Carbon Dioxide 26 BUN 15 Creatinine 0.65 Estimated GFR > 60 BUN/Creatinine Ratio 23.1 H Glucose 83 Calcium 8.9 Magnesium 1.9 Total Bilirubin 0.5 AST 30 ALT 17 Alkaline Phosphatase 60 C-Reactive Protein < 0.5 Total Protein 6.2 L Albumin 3.6 Globulin 2.6 Albumin/Globulin Ratio 1.4 Triglycerides 42 Cholesterol 228 H LDL Cholesterol, Calc 140 H HDL Cholesterol 80 H TSH 1.13 Chlamy pneumoniae PCR Not detected Adenovirus (PCR) Not detected B. pertussis DNA (PCR) Not detected B.parapertussis DNA PCR Not detected Coronavirus OC43 (PCR) Not detected Coronavirus HKU1 (PCR) Not detected Coronavirus 229E (PCR) Not detected SARS-CoV-2 (PCR) Not detected Coronavirus NL63 (PCR) Not detected Human Metapneumovir PCR Not detected Influenza Type A (PCR) Not detected Influenza Type B (PCR) Not detected M. pneumoniae (PCR) Not detected Parainfluenza 1 (PCR) Not detected Parainfluenza 2 (PCR) Not detected Parainfluenza 3 (PCR) Not detected Parainfluenza 4 (PCR) Not detected RSV (PCR) Not detected Entero/Rhino (PCR) Not detected PFSH Medical History T wave inversion on electrocardiogram Septal infarction AV block Atrial flutter by electrocardiogram Chronic left hip pain Depression Hyperlipidemia Osteopenia Chronic pain of right thumb Right shoulder pain Neck pain on right side Skin lesion of left leg Hair loss Hemochromatosis Allergic rhinitis Cellulitis of nose, external Social History household members: friend(s) Smoking Status: Never smoker alcohol intake: never Discharge Plan Discharge Plan Patient Disposition: Home Provider Discharge Comment: 1) You were admitted with double vision felt to be due to a TIA 2) You were found to have elevated cholesterol 3) You are being started on Lipitor (atorvastatin), 40 mg daily 4) Follow up with your PCP to check liver enzymes and recheck your lipid panel 5) Discontinue the Lipitor if you develop severe muscle pain/weakness and contact your PCP 6) Your MRI did NOT show signs of a stroke. Return to the ED: Recurrent double vision, weakness or numbness to your face or body, difficulty speaking/swallowing Discharge orders & Medications Prescriptions: New atorvastatin 40 mg tablet 40 mg PO DAILY Qty: 30 0RF Continued amiodarone 200 mg tablet 200 mg PO BEDTIME Eliquis 5 mg Tablet 5 mg PO BID Follow up/Referrals: Erika Lenz MD [Primary Care Provider] - Discharge Health Status Multidrug resistant organism: No MDRO Diet/Activity/Treatments Diet: Diet as Tolerated Activity: As tolerated Oxygen: N/A Visit Report/Discharge Packet Instructions: DI for High Cholesterol-Adult Stand Alone Forms: Patient Portal/API, Stroke Signs & Symptoms Discharge Data Primary Care Provider: Erika Lenz Attending Provider: Dwight Loya Admnora Date/Time: 10/24/24 17:58
--- NOTE | 2024-10-25 15:07 | CM.DANOTE ---
Patient is a 69 yo female who was admitted OBS Status on 10/24/24 for Diplopia and TIA vs CVA r/o. Pt has MCR and [employer] for insurance and her PCP is Dr. Lenz at [facility]. EMR was reviewed. Per MD, pt with hx of AFIB and had increased life stressors and admitted after visual disturbances and to have brain MRI to r/o TIA vs CVA. Per MRI, no acute or subacute infarcts visible. Per RN, pt has been up independent in room and no PT needs at this time and no identified concerns noted. Per MD, pt likely medically stable to d/c home today with no identified barriers to discharge. SW notified TCM group to schedule outpt f/u with her PCP Dr. Lenz. VALERIANO Adhikari
--- NOTE | 2024-10-25 16:24 | PC.NURSE ---
Discharge Day shift: Pt A & O X 4 and stable condition, ambulated to door, left via personal vehicle. Pt took all belongings with them, education given and IV removed.
[2024-10-25 16:44] LABS: Hemoglobin A1C% w Est Avg Glu 4.8 % (4.0-6.0)
== END 2024-10-25 16:32 | disposition home or self-care (01) ==
LOC: ED 16:36 → AC 17:59
PROVIDERS: Admitting Provider Internal Medicine; Emergency Provider Emergency Medicine; Family Provider Nurse Practitioner; PCP Student in an Organized Health Care Education/Training Program; Referring Provider Emergency Medicine; Visit Provider Internal Medicine
DX: H53.2 Diplopia (principal); R51.9 Headache, unspecified; I48.0 Paroxysmal atrial fibrillation; F41.9 Anxiety disorder, unspecified; E78.5 Hyperlipidemia, unspecified; Z11.52 Encounter for screening for COVID-19; Z79.01 Long term (current) use of anticoagulants; E78.00 Pure hypercholesterolemia, unspecified; R03.0 Elevated blood-pressure reading, without diagnosis of hypertension
CPT/HCPCS: 36415; 70450; 70496; 70498; 70551; 71045; 80053; 80061; 81003; 82550; 82962; 83036; 83735; 84443; 84484; 85025; 85610; 85651; 85730; 86140; 87633; 93005; 93010; 99284; G0378; Q9967

== ENCOUNTER → 2024-12-18 11:38 | Outpatient (CLI) | payer MEDICARE, SELFPAY ==
[2024-10-27 14:44] VITALS: BMI 27.4
[2024-12-18 12:24] LABS: Iron 129 ug/dL (37-170)
[2024-12-18 12:25] LABS: Cholesterol 147 mg/dL (140-199); HDL Cholesterol 84 mg/dL (40-60); LDL Cholesterol Calculated 54 mg/dL (<100); Triglycerides 46 mg/dL (35-150)
[2024-12-18 13:02] LABS: Ferritin 32 ng/mL (11-264)
== END ==
PROVIDERS: PCP Student in an Organized Health Care Education/Training Program; Referring Provider Student in an Organized Health Care Education/Training Program; Visit Provider Student in an Organized Health Care Education/Training Program
DX: Z13.0 Encounter for screening for diseases of the blood and blood-forming organs and certain disorders involving the immune mechanism (principal); E78.5 Hyperlipidemia, unspecified
CPT/HCPCS: 36415; 80061; 82728; 83540

== ENCOUNTER 2025-04-01 23:23 | Emergency (ER) | payer MEDICARE, SELFPAY ==
[2024-10-27 14:44] VITALS: BMI 27.4
[2025-04-01 23:25] VITALS: BP 165/67; PULSE 62; RESP 17; TEMP 36.6; O2SAT 98; BMI 23.2
[2025-04-01 23:44] LABS: Add Manual Diff / Slide Review NO; Hematocrit 39.7 % (36-46); Hemoglobin 13.8 g/dL (12.0-16.0); Lymphocytes Absolute Auto 1700 /uL (1100-4500); Mean Corpuscular HGB Conc 34.8 % (30-36); Mean Corpuscular Hemoglobin 34.0 PG (26-34); Mean Corpuscular Volume 97.5 fL (80-100); Platelet Count 149 X10^3/uL (150-400)
--- NOTE | 2025-04-01 23:55 | ED_ITS ---
HPI - Abdominal Pain General Chief Complaint: Abdominal Pain Stated Complaint: L flank pain Time Seen by Provider: 04/01/25 23:31 Source: patient Mode of arrival: EMS History of Present Illness HPI narrative: 69-year-old female history of TIA dyslipidemia homozygous hemochromatosis presents with left flank pain radiating to left lower groin and hip region along with a few bouts of nonbilious nonbloody nausea vomiting sudden onset tonight reminds her of kidney stones that she had 20 years ago. She did not take anything for the pain. She reports having some loose stools earlier and also some kaplan hard small pellets also. Patient denies chest pain, shortness of breath, hematuria, UTI symptoms. Other than what is stated 14 point review of system is negative. Soma atrial fibrillation on Eliquis Related Data Home Medications ?Medication ?Instructions ?Recorded ?Confirmed amiodarone 200 mg tablet 200 mg PO BEDTIME 10/24/24 0 03/13/25 apixaban 5 mg tablet (Eliquis) 5 mg PO BID 10/24/24 Previous Rx's ?Medication ?Instructions ?Recorded rosuvastatin 20 mg tablet 20 mg PO DAILY #90 tabs 03/04 09/27 hydrocodone 5 mg-acetaminophen 325 1 tab PO Q4-6H PRN pain #20 tabs 04/02/25 mg tablet ondansetron 4 mg disintegrating 4 mg PO Q6H PRN nausea and 04/02/25 tablet vomiting #30 tabs tamsulosin 0.4 mg capsule (Flomax) 0.4 mg PO DAILY #30 caps 04/02/25 Allergies Allergy/AdvReac Type Severity Reaction Status Date / Time doxycycline AdvReac Mild esophogeal Verified 04/01/25 23:25 burning Review of Systems Review of Systems ROS Unobtainable: All systems reviewed & are unremarkable except as noted in HPI and below Patient History Medical History T wave inversion on electrocardiogram Septal infarction AV block Atrial flutter by electrocardiogram Chronic left hip pain Depression Hyperlipidemia Osteopenia Chronic pain of right thumb Right shoulder pain Neck pain on right side Skin lesion of left leg Hair loss Hemochromatosis Allergic rhinitis Cellulitis of nose, external Social History household members: friend(s) alcohol intake: never Smoking Status: Never smoker Exam Narrative Exam Narrative: GENERAL: [69] year old patient appears stated age. Well-developed patient, in mild distress. HEAD: Atraumatic. Normocephalic. EYES: Pupils equal round and reactive. Extraocular motions intact. No scleral icterus. No injection or drainage. NECK: Trachea midline. Non tender CARDIOVASCULAR: Regular rate and rhythm without murmurs, gallops, or rubs. RESPIRATORY: Clear to auscultation. Breath sounds equal bilaterally. No wheezes, rales, or rhonchi. GASTROINTESTINAL: Abdomen soft, non-tender, nondistended. EXTREMITIES: No edema or joint tenderness. BACK: Nontender without deformity or crepitance. No flank tenderness. NEURO: AOx3. SKIN: No rash or erythema of visible areas Initial Vital Signs Initial Vital Signs: Vital Signs Temperature 98 F 04/01/25 23:25 Pulse Rate 62 04/01/25 23:25 Respiratory Rate 17 04/01/25 23:25 Blood Pressure 165/67 H 04/01/25 23:25 Pulse Oximetry 98 04/01/25 23:25 Oxygen Delivery Method Room Air 04/01/25 23:25 Course Orders Ordered: ED Orders 04/01/25 23:34 Complete Blood Count AUTO DIFF Stat Comprehensive Metabolic Panel Stat Lipase Stat 04/01/25 23:54 CT abdomen pelvis w con Stat Ondansetron HCl (Ondansetron 4 Mg/2 Ml Inj) 4 mg IV NOW PRN PRN Reason: Nausea And Vomiting Ondansetron HCl (Ondansetron 4 Mg Odt) 4 mg PO NOW PRN PRN Reason: Nausea And Vomiting Vital Signs Vital signs: Vital Signs - 8 hr 04/01/25 23:25 Temperature 98 F Pulse Rate 62 Respiratory Rate 17 Blood Pressure 165/67 H Pulse Oximetry 98 Oxygen Delivery Method Room Air MDM - Abdominal Pain Lab Data 04/01/25 23:34 04/01/25 23:34 Labs: Lab Results 04/01/25 Range/Units 23:34 WBC 8.9 (4.5-11.0) X10^3/uL RBC 4.07 (4.0-5.2) X10^6/uL Hgb 13.8 (12.0-16.0) g/dL Hct 39.7 (36-46) % MCV 97.5 (80-100) fL MCH 34.0 (26-34) PG MCHC 34.8 (30-36) % RDW 13.7 (11.6-14.8) % Plt Count 149 L (150-400) X10^3/uL Neut % (Auto) 72.1 (50-75) % Lymph % (Auto) 19.3 L (25-40) % [place] % (Auto) 7.1 (3-14) % Eos % (Auto) 1.0 L (2-4) % Baso % (Auto) 0.5 (0-2) % Neut # (Auto) 6400 (0284-2869) /uL Lymph # (Auto) 1700 (1199-9907) /uL Thurston # (Auto) 600 (0-900) /uL Eos # (Auto) 100 (0-450) /uL Baso # (Auto) 0 (0-100) /uL Imaging Data CT scan - abdomen/pelvis: Radiologist's Impression: [place] [address] CT Scan Report Signed Patient: Le Carolina MR#: [id number] : 1955 Acct:[id number] Age/Sex: 69 / F Date of Service: 04/01/25 Loc: ED Accession Number: [id number] Procedure: CT abdomen pelvis w con Ordering Provider: Richard Cueto D.O. PROCEDURE: CT ABDOMEN PELVIS W CON INDICATIONS: LLQ / L flank pain/ n/v TECHNIQUE: After the administration of intravenous contrast, axial sections acquired from the lung bases to the pubic symphysis. Coronal and sagittal reformats were performed. For radiation dose reduction, the following was used: automated exposure control, adjustment of mA and/or kV according to patient size. COMPARISON: [facility], US, US ABDOMEN COMPLETE, 04/28/2024, 10:05. FINDINGS: Image quality: Portions of the lower pelvis are suboptimally evaluated secondary to metallic streak artifact from hip arthroplasty. Lower Chest: No significant findings. ABDOMEN: Liver: 5 mm hypoattenuating focus too small to definitively characterize. Gallbladder: No radiopaque gallstones or wall thickening. Biliary ducts: No biliary dilation. Pancreas: No ductal dilation. Spleen: Size is within normal limits. Adrenal Glands: No adrenal nodules. Kidneys and Ureters: Moderate left hydronephrosis and hydroureter. Punctate calcification is present at the distal ureter/ureterovesicular junction. Stomach and Bowel: Normal colonic caliber, without significant wall thickening. Peritoneum: No abnormal intraperitoneal fluid. No free air. Ventral Wall: No significant ventral hernia. Abdominal Nodes: No retroperitoneal or mesenteric adenopathy by size criteria. Vessels: Aorta and inferior vena cava are normal in size. PELVIS: Pelvic Organs: Unremarkable. Bladder: No bladder wall thickening, accounting for underdistention. Pelvic Nodes: No enlarged lymph nodes. Miscellaneous: No inguinal hernias are seen. Bones: No aggressive osseous abnormality. IMPRESSION: Moderate left hydronephrosis and hydroureter secondary to calcification at the distal ureter/UVJ junction. MDM Narrative Medical decision making narrative: All lab work, vital signs, nurse triage note, medication list, previous ER visits and all imaging study reviewed. Patient given fluids Toradol Zofran Flomax strainer here. DC home on Flomax Zofran [place] and to keep hydrated and to follow up with the urologist. Differential diagnosis includes diverticulitis, kidney stone, kidney infection, UTI, constipation, small-bowel obstruction. Discharge Plan Departure Patient Disposition: Home Clinical Impression: Kidney stone Instructions: DI for Kidney Stones Activity Restrictions/Additional Instructions: Return with new or worsening symptoms. Take your medicines as directed. Keep hydrated. Follow up with Urology office for appointment/ . Prescriptions: New hydrocodone-acetaminophen 5-325 mg tablet 1 tab PO Q4-6H PRN (Reason: pain) Qty: 20 0RF tamsulosin [Flomax] 0.4 mg capsule 0.4 mg PO DAILY Qty: 30 0RF ondansetron 4 mg tablet,disintegrating 4 mg PO Q6H PRN (Reason: nausea and vomiting) Qty: 30 0RF No Action rosuvastatin 20 mg tablet 20 mg PO DAILY Qty: 90 3RF amiodarone 200 mg tablet 200 mg PO BEDTIME Eliquis 5 mg Tablet 5 mg PO BID Referrals: Erika Lenz MD [Primary Care Provider, Family Practice] Stand Alone Forms: Patient Portal/API
[2025-04-01 23:57] LABS: Alanine Aminotransferase 18 IU/L (<35); Albumin 4.7 g/dL (3.5-5.0); Albumin Globulin Ratio 1.7 (1.0-2.8); Alkaline Phosphatase 89 U/L (38-126); Blood Urea Nitrogen 17 mg/dL (7-17); Calcium 9.2 mg/dL (8.4-10.2); Carbon Dioxide 20 mmol/L (22-32); Chloride 99 mmol/L (98-107); Estimated Glomerular Filt Rate > 60 mL/min (>60); Globulin 2.8 g/dL (1.7-4.1); Glucose 121 mg/dL (70-99); HEMOLYSIS < 15 (0-50); Lipase 76 U/L (23-300); Potassium 3.6 mmol/L (3.4-5.1); Sodium 133 mmol/L (137-145); Total Protein 7.5 g/dL (6.3-8.2)
[2025-04-02] MEDS: LACTATED RINGERS 1,000 ML 1000 ML IV (00:02)
[2025-04-02] MEDS: KETOROLAC 30 MG/ML VIAL 15 MG IV (00:02)
[2025-04-02] MEDS: TAMSULOSIN 0.4 MG CAPSULE PO (01:20)
== END 2025-04-02 01:21 | disposition home or self-care (01) ==
PROVIDERS: Emergency Provider Family Medicine; PCP Student in an Organized Health Care Education/Training Program
DX: N20.0 Calculus of kidney (principal); R11.2 Nausea with vomiting, unspecified; Z87.442 Personal history of urinary calculi
CPT/HCPCS: 36415; 74177; 80053; 83690; 85025; 96361; 96374; 99284; J1885; Q9967

== ENCOUNTER 2025-04-03 11:13 | Observation (INO) | payer MEDICARE, SELFPAY ==
[2024-10-27 14:44] VITALS: BMI 27.4
[2025-04-03] VITALS (21 sets, daily range): BP systolic 106–182; BP diastolic 58–85; PULSE 60–134; RESP 12–22; TEMP 37.1; O2SAT 93–98; BMI 23.2; BMI 24.5
--- NOTE | 2025-04-03 12:16 | ED.BACK ---
HPI - Back Pain/Injury General Chief Complaint: Back Pain/Injury Stated Complaint: kidney stone Time Seen by Provider: 04/03/25 11:14 History of Present Illness HPI Narrative: 69 years old female, atrial fibrillation on Eliquis, hemochromatosis, dyslipidemia brought in by an ambulance today complaining of left flank pain, nausea vomiting. She was in our ED on 04/01/2025 for this similar complaint and was found having moderate left hydronephrosis, hydroureter secondary to calcification of the distal ureter/UPJ junction on the CAT scan. She also reported some blood in the urine but denied any urgency or difficulty urine, fever, chills, chest pain, shortness of breath, headache, dizziness, loss of consciousness. Related Data Home Medications ?Medication ?Instructions ?Recorded ?Confirmed apixaban 5 mg tablet (Eliquis) 5 mg PO BID 10/24/24 04/03/25 Previous Rx's ?Medication ?Instructions ?Recorded rosuvastatin 20 mg tablet 20 mg PO DAILY #90 tabs 03/23/25 Allergies Allergy/AdvReac Type Severity Reaction Status Date / Time doxycycline AdvReac Mild esophogeal Verified 04/01/25 23:25 burning Review of Systems Review of Systems Narrative: Positive for nausea vomiting, left flank pain, blood in the urine. Negative for chest pain, shortness of breath, dizziness, loss of consciousness, headache, head injury, diarrhea, constipation. Patient History Medical History Allergic rhinitis Atrial flutter by electrocardiogram AV block Cellulitis of nose, external Chronic left hip pain Chronic pain of right thumb Depression Hair loss Hemochromatosis Hyperlipidemia Neck pain on right side Osteopenia Right shoulder pain Septal infarction Skin lesion of left leg T wave inversion on electrocardiogram Social History household members: friend(s) alcohol intake: current Exam Narrative Exam Narrative: GENERAL: Cooperative. Well developed. No acute distress. Appear weak. HEAD: Atraumatic. Normocephalic. NECK: Trachea midline. Non tender CARDIOVASCULAR: Regular rate and rhythm without murmurs, gallops, or rubs. RESPIRATORY: Clear to auscultation. Breath sounds equal bilaterally. No wheezes, rales, or rhonchi. GASTROINTESTINAL: Abdomen soft, non-tender, nondistended. EXTREMITIES: No edema or joint tenderness. BACK: Nontender without deformity or crepitance. No flank tenderness. NEURO: AOx3. SKIN: No rash or erythema of visible areas Initial Vital Signs Initial Vital Signs: Vital Signs Temperature 98.7 F 04/03/25 11:18 Pulse Rate 60 04/03/25 11:18 Respiratory Rate 16 04/03/25 11:18 Blood Pressure 166/85 H 04/03/25 11:18 Pulse Oximetry 97 04/03/25 11:18 Oxygen Delivery Method Room Air 04/03/25 11:18 Course Orders Ordered: Acetaminophen (Acetaminophen 325 Mg Tablet) 650 mg PO Q6H PRN PRN Reason: Fever/Mild Pain (1-3) Apixaban (Apixaban 5 Mg Tablet) 5 mg PO BID [facility] Last Admin: 04/04/25 08:57 Dose: 5 mg Documented By: Admin: 04/03/25 21:39 Dose: 5 mg Documented By: MONCHO Atorvastatin Calcium (Atorvastatin 20 Mg Tablet) 40 mg PO DAILY [facility] Last Admin: 04/04/25 08:57 Dose: 40 mg Documented By: Naloxone HCl (Naloxone 0.4 Mg/Ml Vial) 0.2 mg IV Q2MIN PRN PRN Reason: Opiate Reversal Sodium Chloride (Sodium Chloride 0.9% Flush) 10 ml IV BID [facility] Last Admin: 04/04/25 08:57 Dose: 10 ml Documented By: Admin: 04/03/25 21:39 Dose: 10 ml Documented By: MONCHO Sodium Chloride (Sodium Chloride 0.9% Flush) 10 ml IV PRN PRN PRN Reason: Flush Discontinued Medications Amiodarone HCl (Amiodarone 200 Mg Tablet) 200 mg PO BEDTIME [facility] Hydromorphone HCl (Hydromorphone Hcl 0.5 Mg/0.5 Ml Syringe) 0.5 mg IV NOW ONE Stop: 04/03/25 12:15 Last Admin: 04/03/25 12:19 Dose: 0.5 mg Documented By: ALLEN Lactated Ringer's (Lactated Ringers) 1,000 mls @ 1,000 mls/hr IV BOLUS ONE Stop: 04/03/25 13:14 Last Infusion: 04/03/25 13:17 Dose: Infused Documented By: ALLEN(2) Admin: 04/03/25 12:19 Dose: 1,000 mls/hr Documented By: ALLEN Sodium Chloride (Hypertonic Saline 3%) 100 mls @ 20 mls/hr IV NOW ONE Stop: 04/03/25 18:22 Last Infusion: 04/03/25 15:31 Dose: 0 mls/hr Documented By: Admin: 04/03/25 14:06 Dose: 20 mls/hr Documented By: ALLEN Ondansetron HCl (Ondansetron 4 Mg/2 Ml Inj) 4 mg IV NOW ONE Stop: 04/03/25 12:08 Last Admin: 04/03/25 12:20 Dose: 4 mg Documented By: ALLEN Vital Signs Vital signs: Vital Signs - 8 hr 04/03/25 11:18 04/03/25 11:26 04/03/25 11:30 Temperature 98.7 F Pulse Rate 60 63 62 Respiratory Rate 16 Blood Pressure 166/85 H Pulse Oximetry 97 96 98 Oxygen Delivery Method Room Air 04/03/25 11:33 04/03/25 11:33 04/03/25 12:00 Temperature Pulse Rate 62 Respiratory Rate Blood Pressure 182/77 H 177/79 H Pulse Oximetry 98 Oxygen Delivery Method 04/03/25 12:00 04/03/25 12:30 04/03/25 12:30 Temperature Pulse Rate 61 64 Respiratory Rate Blood Pressure 149/71 H Pulse Oximetry 96 93 Oxygen Delivery Method 04/03/25 13:00 04/03/25 13:00 04/03/25 13:15 Temperature Pulse Rate 63 Respiratory Rate Blood Pressure 148/72 H 142/70 H Pulse Oximetry 96 Oxygen Delivery Method 04/03/25 13:15 04/03/25 13:30 04/03/25 13:30 Temperature Pulse Rate 62 66 Respiratory Rate 17 Blood Pressure 134/64 Pulse Oximetry 95 97 Oxygen Delivery Method MDM - Back Pain/Injury Lab Data 04/04/25 05:35 04/04/25 05:35 Labs: Lab Results 04/03/25 04/03/25 Range/Units 11:31 12:51 WBC 11.5 H (4.5-11.0) X10^3/uL RBC 3.98 L (4.5-5.9) X10^6/uL Hgb 13.4 L (13.5-17.5) g/dL Hct 38.4 L (41-53) % MCV 96.3 (80-100) fL MCH 33.6 (26-34) PG MCHC 34.9 (30-36) % RDW 13.2 (11.6-14.8) % Plt Count 142 L (150-400) X10^3/uL Neut % (Auto) 88.6 H (50-75) % Lymph % (Auto) 4.5 L (25-40) % Edwards % (Auto) 6.7 (3-14) % Eos % (Auto) 0.0 L (2-4) % Baso % (Auto) 0.2 (0-2) % Neut # (Auto) 55534 H (8952-9751) /uL Lymph # (Auto) 500 L (7885-3827) /uL Edwards # (Auto) 800 (0-900) /uL Eos # (Auto) 0 (0-450) /uL Baso # (Auto) 0 (0-100) /uL Sodium 115 L* D 116 L* (137-145) mmol/L Potassium 3.5 3.6 (3.4-5.1) mmol/L Chloride 84 L 86 L (98-107) mmol/L Carbon Dioxide 24 23 (22-32) mmol/L BUN 9 9 (9-20) mg/dL Creatinine 0.86 0.81 (0.66-1.25) mg/dL Estimated GFR > 60 > 60 (>60) mL/min BUN/Creatinine Ratio 10.5 11.1 (6-22) Glucose 127 H 117 H (70-99) mg/dL Calcium 8.6 7.9 L (8.4-10.2) mg/dL Total Bilirubin 1.7 H (0.2-1.3) mg/dL AST 33 (17-59) IU/L ALT 18 (<50) IU/L Alkaline Phosphatase 76 (38-126) U/L Total Protein 6.9 (6.3-8.2) g/dL Albumin 4.1 (3.5-5.0) g/dL Globulin 2.8 (1.7-4.1) g/dL Albumin/Globulin Ratio 1.5 (1.0-2.8) Lipase 30 D (23-300) U/L Imaging Data KUB x-ray: Radiologist's Impression: PROCEDURE: XR KUB INDICATIONS: Left flank pain. Diagnosis UVJ stone before TECHNIQUE: One view of the abdomen acquired. COMPARISON: [facility], CT, CT ABDOMEN PELVIS W CON, 04/02/2025, 0:16. FINDINGS: Surgical changes and devices: None. Bowel: Bowel gas pattern is normal. Soft tissues: No suspicious abdominal calcifications. Right-sided low pelvic ovoid calcifications are present but seen on CT scanning 1 day ago to be external to the ureteral course on the right. Visualized solid organ contours appear normal in size. Bones: No suspicious bony lesions. IMPRESSION: No definite left-sided ureteral stone is found. Please note, however, that the calculus identified within the distal left ureter at the bladder wall level was quite small and would be superimposed on the anterior pelvic osseous structures on plain film imaging. It may not be identifiable by this plain film imaging. Dictated by: Prosper Roa M.D. on 04/03/2025 at 13:16 Approved by: Prosper Roa M.D. on 04/03/2025 at 13:19 MDM Narrative Medical decision making narrative: 04/03/2025, 14:03 discussed the case with our hospitalist and the urologist on-call and the patient was accepted to the hospital for hyponatremia. Our urologist recommended pain control and follow up in the clinic next week. 69 years old female brought in by an ambulance for left flank pain, nausea vomiting. She was found having hyponatremia with sodium of 115 and her sodium was 133, 2 days ago, 04/01/2025. She denied any headache, head injury, diarrhea. In the ED he was given IV Zofran, ringer lactate, Dilaudid and her pain got better. Her nausea vomiting went away. She later was started on 3% sodium chloride 20 cc/hour for acute hyponatremia after discussion with our hospitalist. I discussed the case with our urologist on-call recommended follow up in the clinic and continue pain control for now. He was accepted to the ICU. Critical Care Time Critical Care Time Attestation: I spent at least 35 minutes critical care time on this patient. Discharge Plan Departure Patient Disposition: Admitted As Inpatient Clinical Impression: Acute hyponatremia, Acute left flank pain, Nausea & vomiting Admit Date/Time: 04/03/25 14:03 Admit Provider: Yunior Dee V
[2025-04-03] MEDS: LACTATED RINGERS 1,000 ML 1000 ML IV (12:19)
[2025-04-03] MEDS: ONDANSETRON 4 MG/2 ML INJ IV (12:20)
[2025-04-03 12:24] LABS: Add Manual Diff / Slide Review NO; Hematocrit 38.4 % (41-53); Hemoglobin 13.4 g/dL (13.5-17.5); Lymphocytes Absolute Auto 500 /uL (1100-4500); Mean Corpuscular HGB Conc 34.9 % (30-36); Mean Corpuscular Hemoglobin 33.6 PG (26-34); Mean Corpuscular Volume 96.3 fL (80-100); Platelet Count 142 X10^3/uL (150-400)
[2025-04-03 12:29] LABS: Alanine Aminotransferase 18 IU/L (<50); Albumin 4.1 g/dL (3.5-5.0); Albumin Globulin Ratio 1.5 (1.0-2.8); Alkaline Phosphatase 76 U/L (38-126); Blood Urea Nitrogen 9 mg/dL (9-20); Calcium 8.6 mg/dL (8.4-10.2); Carbon Dioxide 24 mmol/L (22-32); Chloride 84 mmol/L (98-107); Estimated Glomerular Filt Rate > 60 mL/min (>60); Globulin 2.8 g/dL (1.7-4.1); Glucose 127 mg/dL (70-99); HEMOLYSIS < 15 (0-50); Lipase 30 U/L (23-300); Potassium 3.5 mmol/L (3.4-5.1); Total Protein 6.9 g/dL (6.3-8.2)
[2025-04-03 12:31] LABS: Sodium 115 mmol/L (137-145)
[2025-04-03 13:07] LABS: Chloride 86 mmol/L (98-107); HEMOLYSIS < 15 (0-50)
[2025-04-03 13:09] LABS: Blood Urea Nitrogen 9 mg/dL (9-20); Calcium 7.9 mg/dL (8.4-10.2); Carbon Dioxide 23 mmol/L (22-32); Estimated Glomerular Filt Rate > 60 mL/min (>60); Glucose 117 mg/dL (70-99); Potassium 3.6 mmol/L (3.4-5.1)
[2025-04-03 13:10] LABS: Sodium 116 mmol/L (137-145)
[2025-04-03] MEDS: SODIUM CHLORIDE 3 % 100 ML 20 ML IV (14:06)
[2025-04-03 15:34] LABS: Bilirubin Urine UA NEGATIVE (NEGATIVE); Color Urine UA YELLOW; Glucose Urine UA TRACE g/dL (Negative); Ketones Urine UA NEGATIVE (NEGATIVE); Leukocyte Esterase Urine UA NEGATIVE (NEGATIVE); Nitrite Urine UA NEGATIVE (Negative); Occult Blood Urine UA 3+ (Negative); Protein Urine UA NEGATIVE (Negative); Specific Gravity Urine UA <=1.005 (1.000-1.035); Urobilinogen Urine UA 0.2 E.U./dL (0.2); pH Urine UA 6.5 (4.5-8.0)
[2025-04-03 15:37] LABS: Appearance Urine UA Slightly Cloudy
[2025-04-03 15:47] LABS: Culture Indicated Urine Cult Not Indicated
--- NOTE | 2025-04-03 15:47 | P.HP_ITS ---
History of Present Illness History of Present Illness Date Patient Seen: 04/03/25 Time Patient Seen: 15:10 Chief complaint: kidney stone Narrative: 69-year-old woman under the primary care of Dr. Erika Lenz was seen in the emergency department on 04/01/2025 and diagnosed with a left-sided kidney stone. She was prescribed tamsulosin, hydrocodone, and advised to push fluids. That she did, and how. She drank a 12 oz glass of water hourly, she estimates, during all waking hours since her emergency department visit, for at least 10 or 15 glasses of water. Her sodium level was 133 on 04/01 at 11:34 p.m. and measured 115 on 04/03 at 11:31 a.m.. She was given a 1 L bolus of lactated Ringer's IV in the emergency department. Repeat level was 116 at 12:51 p.m.. She was started on 3% saline drip and transferred to the ICU. She is received approximately 40 mL and repeat sodium level is pending. She is alert, though states she feels her thinking is slow, and her friend who was present today concurs. She lives alone with her dog but is not aware of any episodes of loss of consciousness or injuries. She states her left flank pain has improved considerably, and is currently at 1-2/10 after a dose of 0.5 mg of IV Dilaudid in the emergency department. [facility] Medical History Allergic rhinitis Atrial flutter by electrocardiogram AV block Cellulitis of nose, external Chronic left hip pain Chronic pain of right thumb Depression Hair loss Hemochromatosis Hyperlipidemia Neck pain on right side Osteopenia Right shoulder pain Septal infarction Skin lesion of left leg T wave inversion on electrocardiogram Social History household members: friend(s) alcohol intake: never Meds Home Medications and Allergies Home Medications ?Medication ?Instructions ?Recorded ?Confirmed ?Type amiodarone 200 mg tablet 200 mg PO BEDTIME 10/24/24 0 03/13/25 History apixaban 5 mg tablet (Eliquis) 5 mg PO BID 10/24/24 History rosuvastatin 20 mg tablet 20 mg PO DAILY #90 tabs 03/04 09/27 Rx hydrocodone 5 mg-acetaminophen 325 1 tab PO Q4-6H PRN pain #20 tabs 04/02/25 Rx mg tablet ondansetron 4 mg disintegrating 4 mg PO Q6H PRN nausea and 04/02/25 Rx tablet vomiting #30 tabs tamsulosin 0.4 mg capsule (Flomax) 0.4 mg PO DAILY #30 caps 04/02/25 Rx Allergies Allergy/AdvReac Type Severity Reaction Status Date / Time doxycycline AdvReac Mild esophogeal Verified 04/01/25 23:25 burning Review of Systems Review of Systems ROS: Yes All systems reviewed with the patient and are negative except as otherwise documented Exam Vital Signs (past 8 hours): - 04/03/25 11:18 04/03/25 11:26 04/03/25 11:30 Temperature 98.7 F Pulse Rate 60 63 62 Respiratory Rate 16 Blood Pressure 166/85 H Pulse Oximetry 97 96 98 Oxygen Delivery Method Room Air 04/03/25 11:33 04/03/25 11:33 04/03/25 12:00 Temperature Pulse Rate 62 Respiratory Rate Blood Pressure 182/77 H 177/79 H Pulse Oximetry 98 Oxygen Delivery Method 04/03/25 12:00 04/03/25 12:30 04/03/25 12:30 Temperature Pulse Rate 61 64 Respiratory Rate Blood Pressure 149/71 H Pulse Oximetry 96 93 Oxygen Delivery Method 04/03/25 13:00 04/03/25 13:00 04/03/25 13:15 Temperature Pulse Rate 63 Respiratory Rate Blood Pressure 148/72 H 142/70 H Pulse Oximetry 96 Oxygen Delivery Method 04/03/25 13:15 04/03/25 13:30 04/03/25 13:30 Temperature Pulse Rate 62 66 Respiratory Rate 17 Blood Pressure 134/64 Pulse Oximetry 95 97 Oxygen Delivery Method 04/03/25 13:45 04/03/25 13:45 04/03/25 14:00 Temperature Pulse Rate 62 61 Respiratory Rate 12 12 Blood Pressure 141/69 H Pulse Oximetry 93 95 Oxygen Delivery Method 04/03/25 14:00 04/03/25 14:15 04/03/25 14:15 Temperature Pulse Rate 62 Respiratory Rate 12 Blood Pressure 136/69 141/69 H Pulse Oximetry 96 Oxygen Delivery Method 04/03/25 14:30 04/03/25 14:30 04/03/25 14:45 Temperature Pulse Rate 62 Respiratory Rate 13 Blood Pressure 138/72 134/69 Pulse Oximetry 95 Oxygen Delivery Method 04/03/25 14:45 04/03/25 15:00 04/03/25 15:00 Temperature Pulse Rate 64 61 Respiratory Rate 22 21 Blood Pressure 131/71 Pulse Oximetry 98 96 Oxygen Delivery Method Oxygen Delivery Method Room Air Narrative Exam Narrative: GENERAL: This is a well-nourished, well-developed patient, in no apparent distress. HEAD: Atraumatic. Normocephalic. No temporal or scalp tenderness. EYES: Pupils equal round and reactive. Extraocular motions intact. No scleral icterus. No injection or drainage. ENT: Mucous membranes pink and moist. NECK: Trachea midline. No JVD, bruits or lymphadenopathy. Supple, nontender, no meningeal signs. CARDIOVASCULAR: Regular rate and rhythm without murmurs, gallops, or rubs. RESPIRATORY: Clear to auscultation. GASTROINTESTINAL: Abdomen soft, non-tender, nondistended. EXTREMITIES: No clubbing, cyanosis, or edema. BACK: Nontender without deformity or crepitance. No flank tenderness. NEUROLOGIC: Alert, oriented x3 though states that she feels her thinking is slow, and her friend agrees that she seems to be mildly confused or at least slow in her responses, speech fluent, full upper and lower motor strength, no focal deficits evident. DERMATOLOGIC: No rashes or skin lesions. Objective Imaging 1. Abdomen pelvis CT 04/01/2025: : Radiologist's impression: Moderate left hydronephrosis and hydroureter secondary to calcification at the distal ureter/UVJ junction. 2. KUB x-ray 04/03/2025: : Radiologist's impression: No definite left-sided ureteral stone is found. Please note, however, that the calculus identified within the distal left ureter at the bladder wall level was quite small and would be superimposed on the anterior pelvic osseous structures on plain film imaging. It may not be identifiable by this plain film imaging. Labs 04/03/25 11:31 04/03/25 12:51 Labs: Laboratory Results - last 24 hr 04/03/25 04/03/25 04/03/25 11:31 12:51 15:12 WBC 11.5 H RBC 3.98 L Hgb 13.4 L Hct 38.4 L MCV 96.3 MCH 33.6 MCHC 34.9 RDW 13.2 Plt Count 142 L Neut % (Auto) 88.6 H Lymph % (Auto) 4.5 L [place] % (Auto) 6.7 Eos % (Auto) 0.0 L Baso % (Auto) 0.2 Neut # (Auto) 31109 H Lymph # (Auto) 500 L [place] # (Auto) 800 Eos # (Auto) 0 Baso # (Auto) 0 Sodium 115 L* D 116 L* Potassium 3.5 3.6 Chloride 84 L 86 L Carbon Dioxide 24 23 BUN 9 9 Creatinine 0.86 0.81 Estimated GFR > 60 > 60 BUN/Creatinine Ratio 10.5 11.1 Glucose 127 H 117 H Calcium 8.6 7.9 L Total Bilirubin 1.7 H AST 33 ALT 18 Alkaline Phosphatase 76 Total Protein 6.9 Albumin 4.1 Globulin 2.8 Albumin/Globulin Ratio 1.5 Lipase 30 D Urine Color Yellow Urine Appearance Slightly cloudy Urine pH 6.5 Ur Specific [place] <=1.005 Urine Protein Negative Urine Glucose (UA) Trace H Urine Ketones Negative Urine Occult Blood 3+ H Urine Nitrate Negative Urine Bilirubin Negative Urine Urobilinogen 0.2 Ur Leukocyte Esterase Negative Assessment & Plan Assessment & Plan narrative: 1. Severe rapid onset hyponatremia due to polydipsia. * Admit to ICU * Frequent neuro checks * Maintain NPO at this point given high-risk of seizures and attended risk of aspiration * Hold 3% saline at this point and recheck sodium * Sodium may correct with simple observation, fluid restriction and cessation of polydipsia * The high-risk nature of her condition is reviewed, particularly the rapid onset nature of severe hyponatremia, with risk of and permanent disability * Close and careful correction will be monitored with hourly sodium checks, with the understanding that even this may not be sufficient to avert catastrophic neurologic complications 2. Left-sided ureterolithiasis. * Appears symptomatically improved * Monitor without neuroactive pain medications at this point 3. Atrial flutter/chronic anticoagulation * Continue amiodarone/Eliquis * Monitor on telemetry 4. Hyperlipidemia. * Continue routine medication when stable DVT prophylaxis: SCDs/Eliquis Code status: Full code. Quality MIPS - Admit I confirm the patient?s Advance Care Plan is present, Code status is documented, Surrogate decision maker is in patient?s record [If Yes, STOP here]: Yes [facility] - Meds 'Current medications' to include all prescriptions, [id number] products, herbals, cannabis/cannabidiol products, and vitamin/mineral/dietary (nutritional) supplements. I have utilized all available resources to obtain, update, or review the patient?s current medications. [If Yes, STOP here]: Yes [employer] Document charge(s): No Charge Codes Initial inpatient/observation care: [id number]
[2025-04-03 16:39] LABS: Sodium 119 mmol/L (137-145)
[2025-04-03 17:13] LABS: Sodium 120 mmol/L (137-145)
[2025-04-03 17:40] LABS: MRSA (Nasal) PCR NOT DETECTED (Not Detect)
[2025-04-03 18:06] LABS: Sodium 123 mmol/L (137-145)
[2025-04-03 19:14] LABS: Sodium 124 mmol/L (137-145)
[2025-04-03 20:12] LABS: Sodium 127 mmol/L (137-145)
[2025-04-03] MEDS: APIXABAN 5 MG TABLET PO (21:39)
[2025-04-03] MEDS: SODIUM CHLORIDE 0.9% FLUSH 10 ML IV (21:39)
[2025-04-03 22:19] LABS: Sodium 131 mmol/L (137-145)
[2025-04-04] VITALS (10 sets, daily range): BP systolic 92–125; BP diastolic 51–59; PULSE 62–127; RESP 16–25; TEMP 35.8; O2SAT 94–97
[2025-04-04 05:52] LABS: Add Manual Diff / Slide Review NO; Hematocrit 34.9 % (36-46); Hemoglobin 12.2 g/dL (12.0-16.0); Lymphocytes Absolute Auto 1100 /uL (1100-4500); Mean Corpuscular HGB Conc 35.0 % (30-36); Mean Corpuscular Hemoglobin 33.7 PG (26-34); Mean Corpuscular Volume 96.5 fL (80-100); Platelet Count 120 X10^3/uL (150-400)
[2025-04-04 05:58] LABS: Blood Urea Nitrogen 10 mg/dL (7-17); Calcium 8.6 mg/dL (8.4-10.2); Carbon Dioxide 28 mmol/L (22-32); Chloride 105 mmol/L (98-107); Estimated Glomerular Filt Rate > 60 mL/min (>60); Glucose 87 mg/dL (70-99); HEMOLYSIS < 15 (0-50); Potassium 3.5 mmol/L (3.4-5.1); Sodium 137 mmol/L (137-145)
--- NOTE | 2025-04-04 08:17 | CM.DANOTE ---
Initial DCP Assessment Note Pt is a 69 yo female, resident [facility], admitted INPT- severe hyponatremia. PCP: Dr Lenz Payer: M[employer] Reviewed chart, patient lives alone, independently, active. DC order from hospitalist has already been initiated this morning. No barriers identified at this time to patient's safe discharge home w/friends and family to assist; close outpatient f/u recommended. Social work team will plan to follow clinical course closely in case any DC needs or concerns arise. VALERIANO Delvalle Discharge Planning/Care Management CM Discharge Assessment Start: 04/03/25 14:17 Freq: Status: Active Protocol: Document 04/04/25 08:14 TAMMY (Rec: 04/04/25 08:16 TAMMY [id number]) Discharge Planning Assessment Assigned Discharge VALERIANO Solo Catering Driver DPOA/Assigned Ellyn Elliott Designee Name Contact Information [phone] Advance Directives? Yes Advance Directives No on File History Provided By Patient Prior Living House Arrangements Household Members friend(s) Type of Drives own vehicle transporation used prior to admit Independent with ADL Yes 's Is patient alert and Yes oriented? Comment Independent Discharge Plan Home Transportation Friend Arrangement Referrals Initiated None needed
[2025-04-04] MEDS: APIXABAN 5 MG TABLET PO (08:57)
[2025-04-04] MEDS: SODIUM CHLORIDE 0.9% FLUSH 10 ML IV (08:57)
[2025-04-04] MEDS: ATORVASTATIN 20 MG TABLET 40 MG PO (08:57)
--- NOTE | 2025-04-04 11:53 | P.DS_ITS ---
History of Present Illness History of Present Illness Date Patient Seen: 04/04/25 Time Patient Seen: 07:40 Chief complaint: kidney stone Narrative: 69-year-old woman under the primary care of Dr. Erika Lenz was seen in the emergency department on 04/01/2025 and diagnosed with a left-sided kidney stone. She was prescribed tamsulosin, hydrocodone, and advised to push fluids. That she did, and how. She drank a 12 oz glass of water hourly, she estimates, during all waking hours since her emergency department visit, for at least 10 or 15 glasses of water. Her sodium level was 133 on 04/01 at 11:34 p.m. and measured 115 on 04/03 at 11:31 a.m.. She was given a 1 L bolus of lactated Ringer's IV in the emergency department. Repeat level was 116 at 12:51 p.m.. She was started on 3% saline drip and transferred to the ICU. She is received approximately 40 mL and repeat sodium level is pending. She is alert, though states she feels her thinking is slow, and her friend who was present today concurs. She lives alone with her dog but is not aware of any episodes of loss of consciousness or injuries. She states her left flank pain has improved considerably, and is currently at 1-2/10 after a dose of 0.5 mg of IV Dilaudid in the emergency department. Discharge Providers Provider Date of admission: 04/03/25 14:03 Discharge Date: 04/04/25 Primary care physician: Erika Lenz MD Discharge provider: Yunior Dee MD Summary Hospital Course Discharge Diagnosis: 1. Severe hyponatremia due to polydipsia 2. Left ureterolithiasis, clinically resolved 3. Atrial flutter/chronic anticoagulation 4. Hyperlipidemia Hospital Course: The patient was admitted and administered lactated Ringer's 1 L in the emergency department, started on 3% saline infusion in the ICU. After 3 hours her sodium improved from 116-119. Saline was stopped and she was observed with sodium levels coming up proximally 1-2 milliequivalent/hour and normalizing to 137 following morning. She had no neurologic complications and remained neurologically intact, without confusion or the metabolic complications. She was feeling well the next morning. She was instructed to ingest no more than 4 glasses of water daily, and is drinking more than that to add electrolytes/sports drink containing fluids. She was interested in discharge home. No other issues arose. The patient acknowledged understanding, agreement and appreciation of this plan of care. Status at Discharge Cognitive/behavioral status at discharge: oriented Functional status at discharge: independent ambulation Overall status at discharge: patient is back to baseline Time Spent with Patient Time spent: Less than 30 minutes Exam Vital Signs (past 8 hours): - 04/04/25 04:00 04/04/25 05:00 04/04/25 06:00 Temperature 96.5 F L Pulse Rate 69 73 62 Respiratory Rate 18 18 16 Blood Pressure 92/53 L 109/51 L 107/54 L Pulse Oximetry 95 95 95 04/04/25 08:08 04/04/25 08:30 04/04/25 09:00 Temperature Pulse Rate 70 76 Respiratory Rate 21 24 Blood Pressure 116/57 L Pulse Oximetry 96 96 04/04/25 09:00 04/04/25 09:30 Temperature Pulse Rate 77 72 Respiratory Rate 25 H 16 Blood Pressure Pulse Oximetry 97 96 Oxygen Delivery Method Room Air Narrative Exam Narrative: GENERAL: This is a well-nourished, well-developed patient, in no apparent distress. EYES: Pupils equal round and reactive. Extraocular motions intact. No scleral icterus. No injection or drainage. ENT: Mucous membranes pink and moist. NECK: Trachea midline. No JVD, bruits or lymphadenopathy. Supple, nontender, no meningeal signs. CARDIOVASCULAR: Regular rate and rhythm without murmurs, gallops, or rubs. RESPIRATORY: Clear to auscultation. GASTROINTESTINAL: Abdomen soft, non-tender, nondistended. EXTREMITIES: No clubbing, cyanosis, or edema. BACK: Nontender without deformity or crepitance. No flank tenderness. NEUROLOGIC: Alert, oriented x3, speech fluent, full upper and lower motor strength, no focal deficits evident. DERMATOLOGIC: No rashes or skin lesions. Objective Imaging 1. Abdomen pelvis CT 04/01/2025: : Radiologist's impression: Moderate left hydronephrosis and hydroureter secondary to calcification at the distal ureter/UVJ junction. 2. KUB x-ray 04/03/2025: : Radiologist's impression: No definite left-sided ureteral stone is found. Please note, however, that the calculus identified within the distal left ureter at the bladder wall level was quite small and would be superimposed on the anterior pelvic osseous structures on plain film imaging. It may not be identifiable by this plain film imaging. Labs 04/04/25 05:35 04/04/25 05:35 Labs: Laboratory Results - last 24 hr 04/03/25 04/03/25 04/03/25 11:31 12:51 15:12 WBC 11.5 H RBC 3.98 L Hgb 13.4 L Hct 38.4 L MCV 96.3 MCH 33.6 MCHC 34.9 RDW 13.2 Plt Count 142 L Neut % (Auto) 88.6 H Lymph % (Auto) 4.5 L [place] % (Auto) 6.7 Eos % (Auto) 0.0 L Baso % (Auto) 0.2 Neut # (Auto) 39461 H Lymph # (Auto) 500 L [place] # (Auto) 800 Eos # (Auto) 0 Baso # (Auto) 0 Sodium 115 L* D 116 L* Potassium 3.5 3.6 Chloride 84 L 86 L Carbon Dioxide 24 23 BUN 9 9 Creatinine 0.86 0.81 Estimated GFR > 60 > 60 BUN/Creatinine Ratio 10.5 11.1 Glucose 127 H 117 H Calcium 8.6 7.9 L Total Bilirubin 1.7 H AST 33 ALT 18 Alkaline Phosphatase 76 Total Protein 6.9 Albumin 4.1 Globulin 2.8 Albumin/Globulin Ratio 1.5 Lipase 30 D Urine Color Yellow Urine Appearance Slightly cloudy Urine pH 6.5 Ur Specific [place] <=1.005 Urine Protein Negative Urine Glucose (UA) Trace H Urine Ketones Negative Urine Occult Blood 3+ H Urine Nitrate Negative Urine Bilirubin Negative Urine Urobilinogen 0.2 Ur Leukocyte Esterase Negative Urine RBC 5-10/hpf H Urine WBC 0-1/hpf Ur Squamous Epith Cells 0-1 /hpf Calcium Oxalate Crystal Few H Urine Bacteria None seen Ur Culture Indicated? Cult not indicated Vol Urine Centrifuged 10ml (spun) Nasal Screen MRSA (PCR) 04/03/25 04/03/25 04/03/25 15:20 16:10 16:48 WBC RBC Hgb Hct MCV MCH MCHC RDW Plt Count Neut % (Auto) Lymph % (Auto) [place] % (Auto) Eos % (Auto) Baso % (Auto) Neut # (Auto) Lymph # (Auto) [place] # (Auto) Eos # (Auto) Baso # (Auto) Sodium 119 L* 120 L Potassium Chloride Carbon Dioxide BUN Creatinine Estimated GFR BUN/Creatinine Ratio Glucose Calcium Total Bilirubin AST ALT Alkaline Phosphatase Total Protein Albumin Globulin Albumin/Globulin Ratio Lipase Urine Color Urine Appearance Urine pH Ur Specific [place] Urine Protein Urine Glucose (UA) Urine Ketones Urine Occult Blood Urine Nitrate Urine Bilirubin Urine Urobilinogen Ur Leukocyte Esterase Urine RBC Urine WBC Ur Squamous Epith Cells Calcium Oxalate Crystal Urine Bacteria Ur Culture Indicated? Vol Urine Centrifuged Nasal Screen MRSA (PCR) Not detected 04/03/25 04/03/25 04/03/25 17:52 18:58 19:56 WBC RBC Hgb Hct MCV MCH MCHC RDW Plt Count Neut % (Auto) Lymph % (Auto) [place] % (Auto) Eos % (Auto) Baso % (Auto) Neut # (Auto) Lymph # (Auto) [place] # (Auto) Eos # (Auto) Baso # (Auto) Sodium 123 L 124 L 127 L Potassium Chloride Carbon Dioxide BUN Creatinine Estimated GFR BUN/Creatinine Ratio Glucose Calcium Total Bilirubin AST ALT Alkaline Phosphatase Total Protein Albumin Globulin Albumin/Globulin Ratio Lipase Urine Color Urine Appearance Urine pH Ur Specific [place] Urine Protein Urine Glucose (UA) Urine Ketones Urine Occult Blood Urine Nitrate Urine Bilirubin Urine Urobilinogen Ur Leukocyte Esterase Urine RBC Urine WBC Ur Squamous Epith Cells Calcium Oxalate Crystal Urine Bacteria Ur Culture Indicated? Vol Urine Centrifuged Nasal Screen MRSA (PCR) 04/03/25 04/04/25 21:40 05:35 WBC 6.7 RBC 3.61 L Hgb 12.2 Hct 34.9 L MCV 96.5 MCH 33.7 MCHC 35.0 RDW 13.8 Plt Count 120 L Neut % (Auto) 73.4 Lymph % (Auto) 16.6 L [place] % (Auto) 9.5 Eos % (Auto) 0.1 L Baso % (Auto) 0.4 Neut # (Auto) 4900 Lymph # (Auto) 1100 [place] # (Auto) 600 Eos # (Auto) 0 Baso # (Auto) 0 Sodium 131 L 137 Potassium 3.5 Chloride 105 Carbon Dioxide 28 BUN 10 Creatinine 0.63 Estimated GFR > 60 BUN/Creatinine Ratio 15.9 Glucose 87 Calcium 8.6 Total Bilirubin AST ALT Alkaline Phosphatase Total Protein Albumin Globulin Albumin/Globulin Ratio Lipase Urine Color Urine Appearance Urine pH Ur Specific [place] Urine Protein Urine Glucose (UA) Urine Ketones Urine Occult Blood Urine Nitrate Urine Bilirubin Urine Urobilinogen Ur Leukocyte Esterase Urine RBC Urine WBC Ur Squamous Epith Cells Calcium Oxalate Crystal Urine Bacteria Ur Culture Indicated? Vol Urine Centrifuged Nasal Screen MRSA (PCR) [facility] Medical History Allergic rhinitis Atrial flutter by electrocardiogram AV block Cellulitis of nose, external Chronic left hip pain Chronic pain of right thumb Depression Hair loss Hemochromatosis Hyperlipidemia Neck pain on right side Osteopenia Right shoulder pain Septal infarction Skin lesion of left leg T wave inversion on electrocardiogram Social History household members: friend(s) alcohol intake: current Discharge Plan Discharge Plan Patient Disposition: Home Provider Discharge Comment: limit water intake to maximum 4-6 glasses daily, drink electrolyte solutions (sports drinks) if more than 4 glasses Discharge orders & Medications Prescriptions: Continued rosuvastatin 20 mg tablet 20 mg PO DAILY Qty: 90 3RF Eliquis 5 mg Tablet 5 mg PO BID Discontinued hydrocodone-acetaminophen 5-325 mg tablet 1 tab PO Q4-6H PRN (Reason: pain) Qty: 20 0RF tamsulosin [Flomax] 0.4 mg capsule 0.4 mg PO DAILY Qty: 30 0RF ondansetron 4 mg tablet,disintegrating 4 mg PO Q6H PRN (Reason: nausea and vomiting) Qty: 30 0RF Follow up/Referrals: Erika Lenz MD [Primary Care Provider, [facility]] Visit Report/Discharge Packet Stand Alone Forms: Patient Portal/API, Stroke Signs & Symptoms Discharge Data Primary Care Provider: Erika Lenz Quality VTE Deep Vein Thrombosis/Pulmonary Embolism Present on Admission: No MIPS - Admit I confirm the patient?s Advance Care Plan is present, Code status is documented, Surrogate decision maker is in patient?s record [If Yes, STOP here]: Yes MIPS - Meds 'Current medications' to include all prescriptions, [id number] products, herbals, cannabis/cannabidiol products, and vitamin/mineral/dietary (nutritional) supplements. I have utilized all available resources to obtain, update, or review the patient?s current medications. [If Yes, STOP here]: Yes MIPS - DC The patient has a history of heart transplant or Left Ventricular Assist Device (LVAD). If yes, STOP here.: No The patient has current or prior documentation of left ventricular ejection fraction (LVEF) less than or equal to 40%, or moderate or severely depressed left ventricular systolic function.: No A. The patient was prescribed or already taking an Angiotensin-Converting Enzyme (LUCIO) Inhibitor, or Angiotensin Receptor [place] (ARB).: No B. The patient was prescribed or already taking a beta-clinton. [If Yes to Both A & B, STOP here]: No Patient not prescribed/taking LUCIO or ARB, no reason given.: No Patient not prescribed/taking beta-clinton, no reason given.: No PROFEE Charge Codes Discharge inpatient/observation: [id number]
== END 2025-04-04 10:40 | disposition home or self-care (01) ==
LOC: ED 12:00 → AC 14:25 → ICU 04-04 08:08 → AC 04-06 06:10
PROVIDERS: Admitting Provider Internal Medicine; Emergency Provider Emergency Medicine; PCP Student in an Organized Health Care Education/Training Program; Referring Provider Emergency Medicine; Visit Provider Internal Medicine
DX: E87.1 Hypo-osmolality and hyponatremia (principal); I48.92 Unspecified atrial flutter; R63.1 Polydipsia; E78.5 Hyperlipidemia, unspecified; Z79.01 Long term (current) use of anticoagulants
CPT/HCPCS: 36415; 74018; 80048; 80053; 81001; 83690; 84295; 85025; 87797; 96361; 96374; 96375; 99284; 99291; G0378; J1171; J2405

== ENCOUNTER 2025-04-04 19:05 | Emergency (ER) | payer MEDICARE, SELFPAY ==
[2025-04-03 16:08] VITALS: BMI 24.5
[2025-04-04 19:07] VITALS: BP 142/87; PULSE 137; RESP 14; TEMP 36.9; O2SAT 98; BMI 23.2
--- NOTE | 2025-04-04 19:10 | ED.GENADULT ---
HPI - General Adult General Chief complaint: Neuro Symptoms/Deficit Stated complaint: says having a mini stroke Time Seen by Provider: 04/04/25 19:08 History of Present Illness HPI narrative: 69-year-old right-handed female reports history of double vision event 4 months ago, felt to be TIA, admitted here after initial overnight CT imaging, MRI done the next day, can not recall being discharged any particular medications, history of atrial fibrillation status post ablation February 2025, has been on Eliquis since February 2025. Tonight proximally 6:45 p.m. last known well felt like she was having double vision once again, with slight left temporal area discomfort that seems to have resolved, no change in double vision with upward versus lateral gazes. No specific treatment was tried, symptoms improved and then resolved while here in the emergency department. No focal weakness to face arm or leg. No focal numbness to face arm or leg. Related Data Home Medications ?Medication ?Instructions ?Recorded ?Confirmed apixaban 5 mg tablet (Eliquis) 5 mg PO BID 10/24/24 04/03/25 Previous Rx's ?Medication ?Instructions ?Recorded rosuvastatin 20 mg tablet 20 mg PO DAILY #90 tabs 03/23/25 Allergies Allergy/AdvReac Type Severity Reaction Status Date / Time doxycycline AdvReac Mild esophogeal Verified 04/04/25 19:14 burning Patient History Medical History Allergic rhinitis Atrial flutter by electrocardiogram AV block Cellulitis of nose, external Chronic left hip pain Chronic pain of right thumb Depression Hair loss Hemochromatosis Hyperlipidemia Neck pain on right side Osteopenia Right shoulder pain Septal infarction Skin lesion of left leg T wave inversion on electrocardiogram Social History household members: friend(s) alcohol intake: current Exam Narrative Exam Narrative: GENERAL: Well-developed patient, in mild distress. HEAD: Atraumatic. Normocephalic. EYES: Pupils equal round and reactive. Extraocular motions intact. No scleral icterus. No injection or drainage. Wearing glasses, refraction and inferior portion of lens. No diplopia on vertical and horizontal gaze. ENT: Nose without bleeding, purulent drainage. Throat without erythema, tonsillar hypertrophy or exudate. Airway patent. NECK: Trachea midline. Non tender CARDIOVASCULAR: Regular rate and rhythm without murmurs, gallops, or rubs. RESPIRATORY: Clear to auscultation. Breath sounds equal bilaterally. No wheezes, rales, or rhonchi. GASTROINTESTINAL: Abdomen soft, non-tender, nondistended. EXTREMITIES: No edema or joint tenderness. BACK: Nontender without deformity or crepitance. No flank tenderness. NEURO: AOx3. Cranial nerves normal as tested. Motor functions 5/5 upper extremities and lower extremities. Sensory intact to light touch face arm leg. Gyxern-vq-[id number] testing bilaterally normal. SKIN: No rash or erythema of visible areas Initial Vital Signs Initial Vital Signs: Vital Signs Temperature 98.5 F 04/04/25 19:07 Pulse Rate 137 H 04/04/25 19:07 Respiratory Rate 14 04/04/25 19:07 Blood Pressure 142/87 H 04/04/25 19:07 Pulse Oximetry 98 04/04/25 19:07 Oxygen Delivery Method Room Air 04/04/25 19:07 Course Orders Ordered: ED Orders 04/04/25 19:[address] angio head and neck Stat XR chest 1V Stat EKG-12 Lead Stat 04/04/25 19:15 Complete Blood Count AUTO DIFF Stat Comprehensive Metabolic Panel Stat Lipid Panel Stat PTT Partial Thromboplastin Jerod Stat Prothrombin Time INR Stat Troponin & CK Cardiac Panel Stat 04/04/25 20:15 Urine Culture Stat Urine Drug Screen, Rapid Stat Urine Microscopic Stat 04/04/25 21:42 EKG-12 Lead Stat Discontinued Medications Ondansetron HCl (Ondansetron 4 Mg/2 Ml Inj) 4 mg IV NOW PRN PRN Reason: Nausea And Vomiting Ondansetron HCl (Ondansetron 4 Mg Odt) 4 mg PO NOW PRN PRN Reason: Nausea And Vomiting Vital Signs Vital signs: Vital Signs - 8 hr 04/04/25 19:07 04/04/25 19:39 Temperature 98.5 F Pulse Rate 137 H 137 H Respiratory Rate 14 14 Blood Pressure 142/87 H Pulse Oximetry 98 Oxygen Delivery Method Room Air Medical Decision Making Lab Data Lab results reviewed: Yes I reviewed the patient's lab results. Lab results narrative: White blood cell count 8400, hemoglobin 14.4, platelets adequate. Glucose 99. Normal renal function, serum CO2, electrolytes. Normal liver functions. Troponin negative/unmeasurable. Urinalysis negative. UDS negative. 04/04/25 19:15 04/04/25 19:15 Labs: Lab Results 04/04/25 04/04/25 Range/Units 19:15 20:15 WBC 8.4 (4.5-11.0) X10^3/uL RBC 4.22 (4.0-5.2) X10^6/uL Hgb 14.4 (12.0-16.0) g/dL Hct 41.1 (36-46) % MCV 97.4 (80-100) fL MCH 34.1 H (26-34) PG MCHC 35.0 (30-36) % RDW 13.7 (11.6-14.8) % Plt Count 148 L (150-400) X10^3/uL Neut % (Auto) 66.5 (50-75) % Lymph % (Auto) 23.8 L (25-40) % [place] % (Auto) 8.8 (3-14) % Eos % (Auto) 0.4 L (2-4) % Baso % (Auto) 0.5 (0-2) % Neut # (Auto) 5600 (2890-0069) /uL Lymph # (Auto) 2000 (3770-5071) /uL [place] # (Auto) 700 (0-900) /uL Eos # (Auto) 0 (0-450) /uL Baso # (Auto) 0 (0-100) /uL PT 13.7 H (9.4-12.5) SECONDS INR 1.2 (0.9-1.3) APTT 32 (25.1-36.5) SECONDS Sodium 137 (137-145) mmol/L Potassium 3.5 (3.4-5.1) mmol/L Chloride 103 (98-107) mmol/L Carbon Dioxide 26 (22-32) mmol/L BUN 13 (7-17) mg/dL Creatinine 0.69 (0.52-1.04) mg/dL Estimated GFR > 60 (>60) mL/min BUN/Creatinine Ratio 18.8 (6-22) Glucose 99 (70-99) mg/dL Calcium 9.3 (8.4-10.2) mg/dL Total Bilirubin 1.1 (0.2-1.3) mg/dL AST 32 (14-36) IU/L ALT 19 (<35) IU/L Alkaline Phosphatase 75 (38-126) U/L Total Creatine Kinase 94 (30-135) U/L Troponin I < 0.012 (0.01-0.034) ng/mL Total Protein 7.3 (6.3-8.2) g/dL Albumin 4.2 (3.5-5.0) g/dL Globulin 3.1 (1.7-4.1) g/dL Albumin/Globulin Ratio 1.4 (1.0-2.8) Triglycerides 75 (35-150) mg/dL Cholesterol 140 (140-199) mg/dL LDL Cholesterol, Calc 43 (<100) mg/dL HDL Cholesterol 82 H (40-60) mg/dL Urine RBC 0-1/hpf (0-5/HPF) Urine WBC 0-1/hpf (0-5/HPF) Ur Squamous Epith Cells 0-1 /hpf (0-5/HPF) Ur Transition Epith Cell 0-1/hpf (0-5/HPF) Urine Bacteria Few (2-10) H (None) Urine Yeast 1-5/hpf H (None) Ur Culture Indicated? Cult not indicated Vol Urine Centrifuged 10ml (spun) U Opiates 300ng/mL cut Negative (Negative) Ur Oxycodone Screen Negative (Negative) Urine Methadone Screen Negative (Negative) Ur Barbiturates Screen Negative (Negative) U Tricyclic Antidepress Negative (Negative) Ur Phencyclidine Scrn Negative (Negative) Ur Amphetamines Screen Negative (Negative) U Methamphetamines Scrn Negative (Negative) Ur MDMA Scrn (Ecstasy) Negative (Negative) U Benzodiazepines Scrn Negative (Negative) Urine Cocaine Screen Negative (Negative) U Marijuana (THC) Screen Negative (Negative) Urine pH Normal (Normal) Urine Specific [place] Normal (Normal) Ur Creatinine Normal (Normal) Point of Care Testing Glucose POC 89 Urine Dip Bedside Urine Glucose Negative Bedside Urine Bilirubin - Negative Bedside Urine Ketone - Negative Urine Specific [place] 1.005 Bedside Urine Occult Blood +/- Bedside Urine pH 6.0 Bedside Urine Protein - Negative Bedside Urine Urobilinogen - Negative Bedside Urine Nitrite - Negative Bedside Urine Leukocytes - Negative Esterase Point of care testing: Point of Care Testing Glucose POC 89 Urine Dip Bedside Urine Glucose Negative Bedside Urine Bilirubin - Negative Bedside Urine Ketone - Negative Urine Specific [place] 1.005 Bedside Urine Occult Blood +/- Bedside Urine pH 6.0 Bedside Urine Protein - Negative Bedside Urine Urobilinogen - Negative Bedside Urine Nitrite - Negative Bedside Urine Leukocytes - Negative Esterase Imaging Data CT scan - head: Radiologist's Impression: [address] [address] [address] Scan Report Signed Patient: Le Carolina MR#: [id number] : 1955 Acct:[id number] Age/Sex: 69 / F Date of Service: 04/04/25 Loc: ED Accession Number: [id number] Procedure: CT Stroke Ordering Provider: Zacarias Rosario MD PROCEDURE: CT STROKE INDICATIONS: Positive BE-FAST, Stroke symptoms TECHNIQUE: Noncontrast 4.5 mm thick angled axial sections acquired from the foramen magnum to the vertex, with coronal reformats. For radiation dose reduction, the following was used: automated exposure control, adjustment of mA and/or kV according to patient size. COMPARISON: [facility], CT, CT HEAD/BRAIN WO CON, 10/24/2024, 13:10. FINDINGS: Image quality: Diagnostic. CSF spaces: Basal cisterns are patent. No extra-axial fluid collections. The ventricles are symmetric in size and shape. Brain: No intracranial bleeds or mass effect. There is cerebral volume loss, with resultant ventricular and sulcal prominence. There are periventricular and deep white matter chronic small vessel ischemic changes. There is intracranial internal carotid artery atherosclerosis. Skull and face: Calvarium and visualized facial bones appear intact, without suspicious lesions. Sinuses: Visualized sinuses and mastoids are clear. IMPRESSION: No acute intracranial pathology. Findings were reported to ordering physician Dr. Rosario in the ER at the time of dictation. This study fulfills neurological imaging criteria for inclusion or exclusion of acute stroke therapies based on available published neurological guidelines. Dictated by: Caleb Wilson M.D. on 04/04/2025 at 19:29 Approved by: Caleb Wilson M.D. on 04/04/2025 at 19:30 CTA - brain/neck: Radiologist's Impression: [address] [address] [address] Scan Report Signed Patient: Le Carolina MR#: [id number] : 1955 Acct:[id number] Age/Sex: 69 / F Date of Service: 04/04/25 Loc: ED Accession Number: [id number] Procedure: CT angio head and neck Ordering Provider: Zacarias Rosario MD PROCEDURE: CT ANGIO HEAD AND NECK INDICATIONS: stroke TECHNIQUE: After the administration of intravenous contrast, 1 mm thick sections acquired from the aortic arch through the [place]. 3-dimensional rovitoz-sckmgriwb-zuowmyrwts (MIP) and/or volume rendering reformats were acquired of the central intracranial vasculature and neck separately. For radiation dose reduction, the following was used: automated exposure control, adjustment of mA and/or kV according to patient size. COMPARISON: [facility], CT, CT ANGIO HEAD AND NECK, 10/24/2024, 13:10. FINDINGS: Image quality: Diagnostic. Cerebral CT Angiogram: Internal carotid arteries: No acute findings. Intracranial ICA are patent with no significant stenosis. No occlusion. No aneurysm. Anterior cerebral arteries: Unremarkable. No significant stenosis. No occlusion. No aneurysm. Middle cerebral arteries: Unremarkable. No significant stenosis. No occlusion. No aneurysm. Posterior cerebral arteries: Unremarkable. No significant stenosis. No occlusion. No aneurysm. Basilar artery: Unremarkable. No significant stenosis. No occlusion. No aneurysm. Vertebral arteries: Unremarkable as visualized. Dural venous sinuses: Unremarkable given phase of enhancement. Other: Arterial phase appearance of the brain parenchyma is unremarkable. Neck CT Angiogram: Internal carotid arteries: Unremarkable. No significant stenosis. No dissection or occlusion. Common carotid arteries: Unremarkable. No significant stenosis. No dissection or occlusion. External carotid arteries: Unremarkable. No occlusion. Vertebral arteries: Dominant left vertebral artery. No significant stenosis. No dissection or occlusion. Aortic Arch and Mediastinum: Partially visualized aortic arch unremarkable without evidence of aneurysm. Origins of the great vessels unremarkable. Other: Arterial phase soft tissues of the neck and chest are unremarkable. IMPRESSION: 1. No significant intracranial arterial abnormality is seen. 2. No significant abnormality is seen within the arteries of the neck. Any quantitative measurements of stenosis were performed using NASCET criteria. Dictated by: Caleb Wilson M.D. on 04/04/2025 at 19:39 Approved by: Caleb Wilson M.D. on 04/04/2025 at 19:40 Chest x-ray: Radiologist's Impression: Le Carolina??69??F??1955 ? Allergy/Adv: [address] [address] XRay Report Signed Patient: Le Carolina MR#: [id number] : 1955 Acct:[id number] Age/Sex: 69 / F Date of Service: 04/04/25 Loc: ED Accession Number: [id number] Procedure: XR chest 1V Ordering Provider: Zacarias Rosario MD PROCEDURE: XR CHEST 1V INDICATIONS: Possible stroke TECHNIQUE: One view of the chest was acquired. COMPARISON: [facility], XR CHEST 1V, 10/24/2024, 12:34. FINDINGS: Surgical changes and devices: None. Lungs and pleura: Lungs are clear. No pleural effusions or pneumothorax. Mediastinum: Mediastinal contours appear normal. Heart size is enlarged. Bones and chest wall: No suspicious bony lesions. Overlying soft tissues appear unremarkable. IMPRESSION: No acute cardiopulmonary pathology. Dictated by: Caleb Wilson M.D. on 04/04/2025 at 19:48 Approved by: Caleb Wilson M.D. on 04/04/2025 at 19:48 [facility] Narrative Medical decision making narrative: 69-year-old female right-handed had double vision TIA episode 4 months ago, admission in imaging studies here, no medications recalled. Taking Eliquis since February 2024 cardiac ablation for atrial fibrillation. Now with double vision onset 6:45 p.m. similar to previous event, with left temporal area mild headache. Sent for imaging. Symptoms seemed to be resolving and then resolved. CT head noncontrast. No acute changes. See radiology report. EKG sinus rhythm with rate 62, first-degree AV block, VT interval 298. Left bundle branch block. Lab data: White blood cell count 8400, hemoglobin 14.4, platelets adequate. Glucose 99. Normal renal function, serum CO2, electrolytes. Normal liver functions. Troponin negative/unmeasurable. Urinalysis negative. UDS negative. 2200, case discussed with Neurology [facility] Dr. Naqvi, reviewed images, symptoms resolved, patient already on Eliquis, no specific treatment novel, doubt outpatient need for admission for MRI at this time. Follow up with Ophthalmology, follow up with Neurology advised. Continue present medications. He had did request fasting lipids and A1c now, even though not fasting. Ordered. Neurology recommendations relayed to patient, encouraged to establish care with area neurologist at [facility] where she has her cardiology care. Discharged home with family. Also advised to follow up with her eye doctor, local community chest officer Dr. Stearns, for ocular examination as well. Continue current chronic medications including statin and Eliquis anticoagulation. Home with friends, advised follow up with PCP early this week to facilitate Neurology consultations in follow up, return precautions discussed. Discharge Plan Departure Patient Disposition: Home Clinical Impression: Diplopia Instructions: DI for Double Vision Activity Restrictions/Additional Instructions: Double vision lasting for about 2 hours, similar event October 2024 for which she were admitted and had CT head and CT angiogram of the head/neck vessels as well as overnight admission for MRI of the brain which was unrevealing. Similar event now this evening of double vision, improved and then resolved. You take Eliquis anticoagulation for history of atrial fibrillation. CT brain tonight showed no acute changes, CT angiogram head and neck vessels tonight showed no narrowing of the vessels or thrombosis of the vessels. Case was presented discussed with on-call stroke Neurology Dr. Naqvi at [facility], who was able to review your current and previous neuro imaging studies, and felt that you can be discharged home with continuation of your Eliquis medication and chronic medications for now. He suggested repeat fasting lipids and A1c testing as an outpatient. He would not feel that you needed to be readmitted or stay for repeat MRI at this time. He suggested following up with your high specialist as well. Discharged home, follow up with your eye doctor provider Dr. Stearns. Advised to establish with area neurologist, perhaps at [facility] where you have other care providers. Follow up with your washtub worker helper as planned. Continuation of your cholesterol statin medication, and your Eliquis blood thinner medication for now. Recheck early this week with your regular provider, to facilitate referrals for Neurology consultation. Return to this/nearest emergency department for any change worsening symptoms or any concerns prior. Prescriptions: No Action rosuvastatin 20 mg tablet 20 mg PO DAILY Qty: 90 3RF Eliquis 5 mg Tablet 5 mg PO BID Referrals: Marlene Stearns MD [Physician, Ophthalmology] Erika Lenz MD [Primary Care Provider, Family Practice] Stand Alone Forms: Patient Portal/API
[2025-04-04 19:22] LABS: Add Manual Diff / Slide Review NO; Hematocrit 41.1 % (36-46); Hemoglobin 14.4 g/dL (12.0-16.0); Lymphocytes Absolute Auto 2000 /uL (1100-4500); Mean Corpuscular HGB Conc 35.0 % (30-36); Mean Corpuscular Hemoglobin 34.1 PG (26-34); Mean Corpuscular Volume 97.4 fL (80-100); Platelet Count 148 X10^3/uL (150-400)
[2025-04-04 19:30] LABS: INR 1.2 (0.9-1.3); Prothrombin Time 13.7 SECONDS (9.4-12.5)
[2025-04-04 19:33] LABS: PTT Partial Thromboplastin Tim 32 SECONDS (25.1-36.5)
[2025-04-04 19:34] LABS: Alanine Aminotransferase 19 IU/L (<35); Albumin 4.2 g/dL (3.5-5.0); Albumin Globulin Ratio 1.4 (1.0-2.8); Alkaline Phosphatase 75 U/L (38-126); Blood Urea Nitrogen 13 mg/dL (7-17); Calcium 9.3 mg/dL (8.4-10.2); Carbon Dioxide 26 mmol/L (22-32); Chloride 103 mmol/L (98-107); Creatine Kinase 94 U/L (30-135); Estimated Glomerular Filt Rate > 60 mL/min (>60); Globulin 3.1 g/dL (1.7-4.1); Glucose 99 mg/dL (70-99); HEMOLYSIS < 15 (0-50); Potassium 3.5 mmol/L (3.4-5.1); Sodium 137 mmol/L (137-145); Total Protein 7.3 g/dL (6.3-8.2)
[2025-04-04 19:39] VITALS: PULSE 137; RESP 14; O2SAT 98
[2025-04-04 19:46] LABS: Troponin I < 0.012 ng/mL (0.01-0.034)
[2025-04-04 20:47] LABS: UR Morphine/Opiate cutoff 300 Negative (Negative); Ur Specific Gravity Normal (Normal); Urine MDMA Negative (Negative); Urine Methamphetamines Negative (Negative); Urine Tetrahydrocannabinol Negative (Negative); Urine Tricyclic Antidepressant Negative (Negative)
[2025-04-04 20:49] LABS: Culture Indicated Urine Cult Not Indicated
--- NOTE | 2025-04-04 21:24 | ED_ITS ---
HPI - General Adult General Chief complaint: Neuro Symptoms/Deficit Stated complaint: says having a mini stroke Time Seen by Provider: 04/04/25 19:08 Source: patient Mode of arrival: Ambulatory Related Data Home Medications ?Medication ?Instructions ?Recorded ?Confirmed apixaban 5 mg tablet (Eliquis) 5 mg PO BID 10/24/24 Previous Rx's ?Medication ?Instructions ?Recorded rosuvastatin 20 mg tablet 20 mg PO DAILY #90 tabs 03/04 09/27 Allergies Allergy/AdvReac Type Severity Reaction Status Date / Time doxycycline AdvReac Mild esophogeal Verified 04/04/25 19:14 burning Patient History Medical History Allergic rhinitis Atrial flutter by electrocardiogram AV block Cellulitis of nose, external Chronic left hip pain Chronic pain of right thumb Depression Hair loss Hemochromatosis Hyperlipidemia Neck pain on right side Osteopenia Right shoulder pain Septal infarction Skin lesion of left leg T wave inversion on electrocardiogram Social History household members: friend(s) alcohol intake: current Exam Narrative Exam Narrative: GENERAL: Well-developed patient, in mild distress. HEAD: Atraumatic. Normocephalic. EYES: Pupils equal round and reactive. Extraocular motions intact. No scleral icterus. No injection or drainage. ENT: Nose without bleeding, purulent drainage. Throat without erythema, tonsillar hypertrophy or exudate. Airway patent. NECK: Trachea midline. Non tender CARDIOVASCULAR: Regular rate and rhythm without murmurs, gallops, or rubs. RESPIRATORY: Clear to auscultation. Breath sounds equal bilaterally. No wheezes, rales, or rhonchi. GASTROINTESTINAL: Abdomen soft, non-tender, nondistended. EXTREMITIES: No edema or joint tenderness. BACK: Nontender without deformity or crepitance. No flank tenderness. NEURO: AOx3. Motor functions grossly nonfocal. SKIN: No rash or erythema of visible areas Initial Vital Signs Initial Vital Signs: Vital Signs Temperature 98.5 F 04/04/25 19:07 Pulse Rate 137 H 04/04/25 19:07 Respiratory Rate 14 04/04/25 19:07 Blood Pressure 142/87 H 04/04/25 19:07 Pulse Oximetry 98 04/04/25 19:07 Oxygen Delivery Method Room Air 04/04/25 19:07 Course Orders Ordered: ED Orders 04/04/25 19:[address] angio head and neck Stat XR chest 1V Stat EKG-12 Lead Stat 04/04/25 19:15 Complete Blood Count AUTO DIFF Stat Comprehensive Metabolic Panel Stat PTT Partial Thromboplastin Jerod Stat Prothrombin Time INR Stat Troponin & CK Cardiac Panel Stat 04/04/25 20:15 Urine Culture Stat Urine Drug Screen, Rapid Stat Urine Microscopic Stat Ondansetron HCl (Ondansetron 4 Mg/2 Ml Inj) 4 mg IV NOW PRN PRN Reason: Nausea And Vomiting Ondansetron HCl (Ondansetron 4 Mg Odt) 4 mg PO NOW PRN PRN Reason: Nausea And Vomiting Vital Signs Vital signs: Vital Signs - 8 hr 04/04/25 19:07 04/04/25 19:39 Temperature 98.5 F Pulse Rate 137 H 137 H Respiratory Rate 14 14 Blood Pressure 142/87 H Pulse Oximetry 98 Oxygen Delivery Method Room Air Medical Decision Making Lab Data 04/04/25 19:15 04/04/25 19:15 Labs: Lab Results 04/04/25 04/04/25 Range/Units 19:15 20:15 WBC 8.4 (4.5-11.0) X10^3/uL RBC 4.22 (4.0-5.2) X10^6/uL Hgb 14.4 (12.0-16.0) g/dL Hct 41.1 (36-46) % MCV 97.4 (80-100) fL MCH 34.1 H (26-34) PG MCHC 35.0 (30-36) % RDW 13.7 (11.6-14.8) % Plt Count 148 L (150-400) X10^3/uL Neut % (Auto) 66.5 (50-75) % Lymph % (Auto) 23.8 L (25-40) % [place] % (Auto) 8.8 (3-14) % Eos % (Auto) 0.4 L (2-4) % Baso % (Auto) 0.5 (0-2) % Neut # (Auto) 5600 (1819-8277) /uL Lymph # (Auto) 2000 (3847-3983) /uL [place] # (Auto) 700 (0-900) /uL Eos # (Auto) 0 (0-450) /uL Baso # (Auto) 0 (0-100) /uL PT 13.7 H (9.4-12.5) SECONDS INR 1.2 (0.9-1.3) APTT 32 (25.1-36.5) SECONDS Sodium 137 (137-145) mmol/L Potassium 3.5 (3.4-5.1) mmol/L Chloride 103 (98-107) mmol/L Carbon Dioxide 26 (22-32) mmol/L BUN 13 (7-17) mg/dL Creatinine 0.69 (0.52-1.04) mg/dL Estimated GFR > 60 (>60) mL/min BUN/Creatinine Ratio 18.8 (6-22) Glucose 99 (70-99) mg/dL Calcium 9.3 (8.4-10.2) mg/dL Total Bilirubin 1.1 (0.2-1.3) mg/dL AST 32 (14-36) IU/L ALT 19 (<35) IU/L Alkaline Phosphatase 75 (38-126) U/L Total Creatine Kinase 94 (30-135) U/L Troponin I < 0.012 (0.01-0.034) ng/mL Total Protein 7.3 (6.3-8.2) g/dL Albumin 4.2 (3.5-5.0) g/dL Globulin 3.1 (1.7-4.1) g/dL Albumin/Globulin Ratio 1.4 (1.0-2.8) Urine RBC 0-1/hpf (0-5/HPF) Urine WBC 0-1/hpf (0-5/HPF) Ur Squamous Epith Cells 0-1 /hpf (0-5/HPF) Ur Transition Epith Cell 0-1/hpf (0-5/HPF) Urine Bacteria Few (2-10) H (None) Urine Yeast 1-5/hpf H (None) Ur Culture Indicated? Cult not indicated Vol Urine Centrifuged 10ml (spun) U Opiates 300ng/mL cut Negative (Negative) Ur Oxycodone Screen Negative (Negative) Urine Methadone Screen Negative (Negative) Ur Barbiturates Screen Negative (Negative) U Tricyclic Antidepress Negative (Negative) Ur Phencyclidine Scrn Negative (Negative) Ur Amphetamines Screen Negative (Negative) U Methamphetamines Scrn Negative (Negative) Ur MDMA Scrn (Ecstasy) Negative (Negative) U Benzodiazepines Scrn Negative (Negative) Urine Cocaine Screen Negative (Negative) U Marijuana (THC) Screen Negative (Negative) Urine pH Normal (Normal) Urine Specific [place] Normal (Normal) Ur Creatinine Normal (Normal) Point of Care Testing Glucose POC 89 Urine Dip Bedside Urine Glucose Negative Bedside Urine Bilirubin - Negative Bedside Urine Ketone - Negative Urine Specific [place] 1.005 Bedside Urine Occult Blood +/- Bedside Urine pH 6.0 Bedside Urine Protein - Negative Bedside Urine Urobilinogen - Negative Bedside Urine Nitrite - Negative Bedside Urine Leukocytes - Negative Esterase Point of care testing: Point of Care Testing Glucose POC 89 Urine Dip Bedside Urine Glucose Negative Bedside Urine Bilirubin - Negative Bedside Urine Ketone - Negative Urine Specific [place] 1.005 Bedside Urine Occult Blood +/- Bedside Urine pH 6.0 Bedside Urine Protein - Negative Bedside Urine Urobilinogen - Negative Bedside Urine Nitrite - Negative Bedside Urine Leukocytes - Negative Esterase Discharge Plan Departure Prescriptions: No Action rosuvastatin 20 mg tablet 20 mg PO DAILY Qty: 90 3RF Eliquis 5 mg Tablet 5 mg PO BID Referrals: Erika Lenz MD [Primary Care Provider, Family Practice]
--- NOTE | 2025-04-04 21:53 | EKG_ITS ---
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
--- NOTE | 2025-04-04 23:00 | PC.NURSE ---
Pt's VS taken at DC. HR 60-70s on tele monitor. Unable to update and document VS d/t other staff clearing the monitor.
[2025-04-04 23:01] LABS: Cholesterol 140 mg/dL (140-199); HDL Cholesterol 82 mg/dL (40-60); Triglycerides 75 mg/dL (35-150)
== END 2025-04-04 22:45 | disposition home or self-care (01) ==
PROVIDERS: Emergency Provider Emergency Medicine; PCP Student in an Organized Health Care Education/Training Program
DX: H53.2 Diplopia (principal); I44.0 Atrioventricular block, first degree; I44.7 Left bundle-branch block, unspecified; Z79.01 Long term (current) use of anticoagulants
CPT/HCPCS: 36415; 70450; 70496; 70498; 71045; 80053; 80061; 80305; 81003; 81015; 82550; 82962; 84484; 85025; 85610; 85730; 87086; 93005; 99284; Q9967

== ENCOUNTER → 2025-04-10 14:26 | Outpatient (CLI) | payer MEDICARE, SELFPAY ==
[2025-04-03 16:08] VITALS: BMI 24.5
[2025-04-10 18:20] LABS: Blood Urea Nitrogen 16 mg/dL (7-17); Calcium 9.1 mg/dL (8.4-10.2); Carbon Dioxide 29 mmol/L (22-32); Chloride 102 mmol/L (98-107); Estimated Glomerular Filt Rate > 60 mL/min (>60); Glucose 113 mg/dL (70-99); HEMOLYSIS < 15 (0-50); Potassium 3.8 mmol/L (3.4-5.1); Sodium 140 mmol/L (137-145)
== END ==
PROVIDERS: PCP Student in an Organized Health Care Education/Training Program; Referring Provider Student in an Organized Health Care Education/Training Program; Visit Provider Student in an Organized Health Care Education/Training Program
DX: E87.1 Hypo-osmolality and hyponatremia (principal)
CPT/HCPCS: 36415; 80048

== ENCOUNTER → 2025-04-11 10:49 | Outpatient (CLI) | payer MEDICARE, SELFPAY ==
[2025-04-03 16:08] VITALS: BMI 24.5
--- NOTE | 2025-04-11 10:51 | DI.CT.S_ITS ---
PROCEDURE: CT KIDNEY URETER BLADDER (KUB) INDICATIONS: kidney TECHNIQUE: CT of the abdomen and pelvis was obtained without intravenous contrast. Coronal and sagittal reformats were performed. For radiation dose reduction, the following was used: automated exposure control, adjustment of mA and/or kV according to patient size. COMPARISON: [facility], CT, CT ABDOMEN PELVIS W CON, 04/02/2025, 0:16. FINDINGS: Image quality: Diagnostic. Lower Chest: No significant findings. ABDOMEN: Liver: No contour-deforming mass. Gallbladder: No radiopaque gallstones or wall thickening. Biliary ducts: No biliary dilation. Pancreas: No ductal dilation. Spleen: Size is within normal limits. Adrenal Glands: No adrenal nodules. Kidneys and Ureters: There is improved, mild residual left pelviectasis. No calculi seen at this time. Stomach and Bowel: Normal colonic caliber, without significant wall thickening. The appendix is normal. Peritoneum: No abnormal intraperitoneal fluid. No free air. Ventral Wall: No significant hernia. Abdominal Nodes: No retroperitoneal or mesenteric adenopathy by size criteria. Vessels: Aorta and inferior vena cava are normal in size. PELVIS: Pelvic Organs: Status post hysterectomy. No adnexal mass seen. Bladder: Unremarkable. Pelvic Nodes: No enlarged lymph nodes. Miscellaneous: No inguinal hernias are seen. Bones: No aggressive osseous abnormality. IMPRESSION: 1. No calculi seen at this time. No acute intra-abdominal abnormality. 2. There is improved but persistent mild left pelviectasis. This may be due to low-grade UPJ stricture or reflux. Dictated by: Arie Puga M.D. on 04/11/2025 at 21:18 Approved by: Arie Puga M.D. on 04/11/2025 at 21:23
== END ==
PROVIDERS: PCP Student in an Organized Health Care Education/Training Program; Referring Provider Student in an Organized Health Care Education/Training Program; Visit Provider Student in an Organized Health Care Education/Training Program
DX: N20.0 Calculus of kidney (principal); N20.1 Calculus of ureter; N13.30 Unspecified hydronephrosis; Z90.710 Acquired absence of both cervix and uterus
CPT/HCPCS: 74176